=== PATIENT | male | born 1975 | race Caucasian/White ===

== ENCOUNTER 2017-11-02 14:04 | Emergency (ER) | payer SELFPAY ==
[2017-11-02 14:05] VITALS: BP 107/70; PULSE 140; RESP 17; TEMP 36.5; O2SAT 98; BMI 18.8
[2017-11-02 14:57] VITALS: BP 111/87; PULSE 97; RESP 16; O2SAT 100
[2017-11-02] MEDS: 0.9% Normal Saline 1,000 ML 1000 ML IV ×2 (15:14→15:36)
[2017-11-02] MEDS: Ondansetron 4 MG/2 ML Vial IV (15:14)
[2017-11-02 15:24] LABS: ALB/GLOB Ratio 1.2 RATIO (0.9-2.4); AST(SGOT) 11 U/L (15-37); Alanine Aminotransfer ALT/SGPT 22 U/L (16-61); Albumin, Serum 3.9 g/dL (3.2-5.0); Alkaline Phosphatase 63 U/L (45-117); Anion Gap 10 (5-15); BUN 85 mg/dL (7-18); BUN/Creat Ratio 53.1 RATIO (10-20); Calcium,Total 8.9 mg/dL (8.5-10.1); Chloride 100 mmol/L (98-107); EST Glomerular Filtration Rate 51 mL/min (>60); Est Glom Filt Rate - Afr Amer 62 mL/min (>60); Estimated Creatinine Clearance 47.25 ml/min; Globulin 3.2 g/dL (2.2-4.2); Glucose 137 mg/dL (74-106); Protein, Total 7.1 g/dL (6.4-8.2); Sodium Level 133 mmol/L (136-145)
--- NOTE | 2017-11-02 15:38 | ED.VISSUMM ---
- ER Visit Summary Date of Service: 11/02/17 Chief Complaint: flu like symptoms with epic and vomiting diarrhea History of Present Illness: The patient is a 42 M is diagnosed with influenza this past Wednesday and treated with Tamiflu and Zofran. He presents because of persistent vomiting and diarrhea. He states he feels weak and lightheaded with standing. He complains of dry mouth, thirst and palpitations. He states he feels miserable. He has not had a documented fever since Wednesday. He does complain of slight headache. Denies photophobia steps of his neck. He does report mild nasal congestion. His cough is nonproductive. He and his friend states he has had significant vomiting diarrhea. There is been no hematemesis, melena hematochezia. He has had decreased urine output. He is uncertain of the color of his urine. He has no history of liver disease or hepatitis. He has no new tattoos. Physical Examination: Appears ill. He looks older than reported age of 42. He is tachycardic with a heart rate of 140. He appears pale. Conjunctivae is pink. Sclera may be anicteric. Mucosa is dry. Heart is rapid and regular without murmur, gallop or rub. Lungs are clear to auscultation with good manner bilaterally. Abdomen is soft with slightly increased bowel sounds and no guarding or peritoneal findings. Lower extremity exam is unremarkable other than pallor. He does have palpable distal pulses upper and lower extremity and they are symmetric. Patient is alert and oriented ?3. Motor is 5 over 5. Sensory is intact. DTRs are symmetric with no clonus or Babinski sign. Cranial 2 through 12 are intact. Cerebellar testing is normal. Test Results: CMP is remarkable for a BUN of 85 creatinine 1.6. Hepatic profile is unremarkable. Emergency Department Course and Treatment: She reports significant vomiting he was treated with Zofran and 1 L normal saline. He still appears dry and complains of thirst after 1 L. An additional liter of normal saline was obtained. Hepatic profile was obtained because he appears to have jaundice. Treatment Plan: Since patient passed p.o. challenge has urinated and looks and feels better he will be discharged home with prescription for Zofran. Since he has no physician he was assigned to Dr. Jason Nevarez. Dr. Jason Nevarez was paged to assure that he is able to be seen on Wednesday for blood work. Disposition: To home with appropriate home-going instructions and specifically instructions to return Impression: 1. Recent diagnosis of influenza with vomiting diarrhea 2. Prerenal azotemia with acute kidney injury/renal insufficiency 3. Severe dehydration This note was generated with [employer] dictation software. It may contain incorrect words, spelling, and punctuation that were not noted in review of the chart prior to signing ED Disposition - Plan for ED Patient: Disposition: Home or Assisted Living Chief Complaint: Nausea/Vomiting Instructions: ED Diet Vomiting Diarrhea, ED Flu Prescriptions: Ondansetron [Zofran Odt] 8 mg PO Q8H PRN PRN #7 tab PRN Reason: Nausea/Vomiting Referrals: Care Physician,No Primary [Primary Care Provider] - Jason Nevarez MD [STAFF PHYSICIAN] - 11/05/17 Additional Instructions: Jason Nevarez's office tomorrow morning to be seen on Wednesday for repeat blood work. If you continue to have nausea and vomiting that is not controlled by the Zofran and return to the emergency department.
[2017-11-02 17:09] VITALS: TEMP 36.8
[2017-11-02 17:56] VITALS: BP 109/85; PULSE 96; RESP 14; O2SAT 100
== END 2017-11-02 17:57 | disposition home or self-care (01) ==
PROVIDERS: Emergency Provider Emergency Medicine
DX: J11.1 Influenza due to unidentified influenza virus with other respiratory manifestations (principal); R11.10 Vomiting, unspecified; R19.7 Diarrhea, unspecified; R79.89 Other specified abnormal findings of blood chemistry; N17.9 Acute kidney failure, unspecified; N28.9 Disorder of kidney and ureter, unspecified; E86.0 Dehydration; R00.0 Tachycardia, unspecified; Z72.0 Tobacco use
CPT/HCPCS: 80053; 96361; 96365; 96366; 96374; 99285; J7030; J2405

== ENCOUNTER 2017-11-04 15:07 | Emergency (ER) | payer OTHER, SELFPAY ==
[2017-11-02 17:56] VITALS: BP 109/85
[2017-11-04 15:08] VITALS: BP 123/86; PULSE 77; RESP 16; TEMP 36.6; O2SAT 100; BMI 16.9
--- NOTE | 2017-11-04 15:24 | EKG12_ITS ---
Test Reason : Blood Pressure : / mmHG Vent. Rate : 150 BPM Atrial Rate : 150 BPM P-R Int : 130 ms QRS Dur : 066 ms QT Int : 332 ms P-R-T Axes : 082 082 086 degrees QTc Int : 524 ms Sinus tachycardia Right atrial enlargement T wave abnormality, consider inferior ischemia Abnormal ECG Confirmed by ALLEGRA GUIDO, CAS ([id number]), image editor HAILEE MAO ([id number] on 11/05/2017 1:58:03 PM Referred By: IZZY Confirmed By:CAS DINH MD
--- NOTE | 2017-11-04 15:25 | ED.VISSUMM ---
- ER Visit Summary Date of Service: 11/04/17 Chief Complaint: [] Vomiting and diarrhea for over a week History of Present Illness: The patient is a 42 M [] the patient has no past history, resents complaining of debilitating fatigue dizziness with activity and vomiting and diarrhea, about 1 week ago he developed runny nose cough vomiting and diarrhea,, diagnosed with the flu, started on Tamiflu and Zofran, he was seen in the emergency department a few days ago, given IV fluids, his symptoms improved slightly toward he could take soft foods but again vomiting again today, and he came in for evaluation with the mother his diarrhea has been watery he has not been in antibiotics no exposures no food intolerances. He has no past history he is on no chronic meds, other than as needed Excedrin for ocular migraines Physical Examination: [] Times are unremarkable his HEENT exam is really unremarkable his eyes are open normal no jaundice, mucous membranes are moist neck is supple lungs are clear heart tones are normal abdomen soft nontender upper lower extremities unremarkable neurologically is awake moving all 4 she is complaining of generalized fatigue Test Results: [] Emergency Department Course and Treatment: [] The fluids labs etc. Chest x-ray is unremarkable, his hemoglobin returns at 9 his chemistry and UA are unremarkable, I question him again about any history of GI bleeding he now recalls that maybe he has been passing thick blackish red stool for about for 5 days initially he told me the stool was watery and clear. Rectal exam is done and shows melanotic stool, he remains hemodynamically stable I explained to the patient there is no GI coverage at [facility], they are agreeable to transfer to [facility] as the mother lives in that area Spoke with [facility] transfer line the are talking to the hospitalist and will call back Treatment Plan: [] Disposition: [] Transfer to [facility] Impression: [] GI bleed, anemia fatigue recent flu type illness This note was generated with [employer] dictation software. It may contain incorrect words, spelling, and punctuation that were not noted in review of the chart prior to signing ED Disposition - Plan for ED Patient: Chief Complaint: General Illness Referrals: Care Physician,No Primary [Primary Care Provider] -
--- NOTE | 2017-11-04 15:35 | RAD_ITS ---
STUDY: X-RAY CHEST REASON FOR EXAM: Male, 42 years old. Cough. Generalized illness. TECHNIQUE: Single AP portable view of the chest. COMPARISON: None. FINDINGS: EKG electrodes are seen. Hyperinflation. There is no demonstrated pleural abnormality. Normal size heart. Normal mediastinum and connor. There is prominence of the pulmonary hilar arteries without peripheral pulmonary vascular congestion, suggesting pulmonary hypertension. Normal visualized aortic arch and descending thoracic aorta. Normal visualized thoracic spine. Normal visualized ribs, clavicles, and shoulders. There is no demonstrated abnormality of the visualized soft tissue structures of the upper abdomen. RAD/Chest 1 View (Portable) IMPRESSION: Hyperinflation. Electronically Signed: Ritesh Muñoz MD at 15:53 EST Tel [phone], Service support ,
[2017-11-04] MEDS: 0.9% Normal Saline 1,000 ML 1000 ML IV (15:38)
[2017-11-04] MEDS: Ondansetron 4 MG/2 ML Vial IV (15:38)
[2017-11-04] MEDS: 0.9% Normal Saline 1,000 ML 999 ML IV (15:38)
[2017-11-04 15:59] LABS: Absolute Neutrophil Count 4.9 X10^3/uL (2.0-7.7); Basophil# 0.04 X10^3/uL; Basophil% 0.5 % (0-1); Eosinophil# 0.06 X10^3/uL; Eosinophils% 0.8 % (0-5); Hematocrit 26.5 % (40-54); Lymphocyte % 29.3 % (19-41); Mean Corpuscular Hgb 30.8 pg (27.0-32.0); Mean Corpuscular Volume 90.8 fL (80-94); Mean Platelet Vol. 10.6 fl (6.2-12.0); Monocyte# 0.54 X10^3/uL; Monocyte% 6.9 % (0-10); Neutrophil # 4.89 X10^3/uL (2.7-7.7); Neutrophil % 62.4 % (47-70); Platelet Count 201 K/mm3 (150-450); RBC Distribution Width CV 12.2 % (11.6-14.6); RBC Distribution Width SD 40.7 fl (35.1-43.9); Red Blood Count 2.92 M/mm3 (4.6-6.2); White Blood Count 7.8 K/mm3 (4.4-11.0)
[2017-11-04 16:00] LABS: POSITIVE COUNT NO; POSITIVE DIFFERENTIAL NO; POSITIVE MORPHOLOGY NO
[2017-11-04 16:19] LABS: Bacteria 0 SEEN /hpf (None Seen); Mucous, Urine 0 SEEN /hpf (<or=2+); Red Blood Cells-Urine 0 SEEN /hpf (0-5); Squamous Epithelial Cells - UA 0 SEEN /hpf (0-5); White Blood Cells 0 SEEN /hpf (0-5)
[2017-11-04 16:19] LABS: AST(SGOT) 23 U/L (15-37); Alanine Aminotransfer ALT/SGPT 22 U/L (16-61); Albumin, Serum 3.3 g/dL (3.2-5.0); Alkaline Phosphatase 55 U/L (45-117); Anion Gap 8 (5-15); BUN 12 mg/dL (7-18); BUN/Creat Ratio 14.1 RATIO (10-20); Bilirubin, Direct 0.19 mg/dL (0.00-0.30); Calcium,Total 8.4 mg/dL (8.5-10.1); Chloride 106 mmol/L (98-107); Creatinine, Serum 0.85 mg/dL (0.70-1.30); EST Glomerular Filtration Rate 106 mL/min (>60); Est Glom Filt Rate - Afr Amer 128 mL/min (>60); Estimated Creatinine Clearance 87.58 ml/min; Glucose 86 mg/dL (74-106); Lipase 216 U/L (73-393); Potassium 3.9 mmol/L (3.5-5.1); Protein, Total 6.3 g/dL (6.4-8.2); Sodium Level 141 mmol/L (136-145)
[2017-11-04 16:29] VITALS: BP 124/61; PULSE 81; RESP 17; O2SAT 99
[2017-11-04 16:32] LABS: Color, Urine Yellow (Yellow); Glucose, Dipstick Normal (Normal); Ketone-Dipstick Negative (Negative); Leukocyte Esterase-Dipstick Negative /ul (Negative); Nitrite-Dipstick Negative (Negative); Occult Blood-Urine Negative /ul (Negative); Protein-Dipstick Negative (Negative); Urine Bilirubin Dipstick Negative (Negative); Urine Clarity Clear (Clear); Urine Urobilinogen Normal (Normal)
[2017-11-04 17:48] VITALS: BP 103/71; PULSE 88; RESP 12; O2SAT 97
[2017-11-04 18:33] VITALS: BP 103/71; PULSE 98; RESP 20; O2SAT 97
[2017-11-04 19:25] VITALS: BP 104/62; PULSE 76; RESP 16; O2SAT 97
== END 2017-11-04 19:26 | disposition short-term general hospital (02) ==
PROVIDERS: Emergency Provider Emergency Medicine
DX: K92.1 Melena (principal); D64.9 Anemia, unspecified; R53.83 Other fatigue; R19.7 Diarrhea, unspecified; R11.10 Vomiting, unspecified; R05 Cough
CPT/HCPCS: 71045; 80048; 80076; 81001; 83690; 85025; 93005; 96361; 96374; 99284; J7030; A4216; J2405

== ENCOUNTER 2017-12-08 19:06 | Observation (INO) | payer OTHER, SELFPAY ==
[2017-12-08 19:07] VITALS: BP 132/83; PULSE 69; RESP 20; TEMP 36.7; O2SAT 98; BMI 18.8
--- NOTE | 2017-12-08 20:07 | RAD_ITS ---
STUDY: X-RAY CHEST REASON FOR EXAM: Male, 42 years old. Chest pain TECHNIQUE: Frontal and lateral views of the chest. COMPARISON: Chest 2.8.18 FINDINGS: There is hyperinflation of the lungs consistent with chronic obstructive lung disease (COPD). There is no demonstrated pleural abnormality. Normal size heart. Normal mediastinum and connor. Normal visualized pulmonary arteries. Normal visualized aortic arch and descending thoracic aorta. Normal visualized thoracic spine. Normal visualized ribs, clavicles, and shoulders. There is no demonstrated abnormality of the visualized soft tissue structures of the upper abdomen. RAD/Chest PA and Lateral IMPRESSION: COPD Electronically Signed: Jacob Cabral MD at 21:15 EDT , Service support ,
--- NOTE | 2017-12-08 20:07 | EKG12_ITS ---
Test Reason : DIZZINESS Blood Pressure : / mmHG Vent. Rate : 053 BPM Atrial Rate : 053 BPM P-R Int : 150 ms QRS Dur : 086 ms QT Int : 450 ms P-R-T Axes : 052 082 062 degrees QTc Int : 422 ms Sinus bradycardia with sinus arrhythmia Otherwise normal ECG Confirmed by SUKHDEEP NIX ([id number]), senior technical editor HAILEE MAO ([id number] on 12/13/2017 1:53:55 PM Referred By: Wilner Chatman Confirmed By:SUKHDEEP NIX
[2017-12-08 20:21] LABS: Absolute Lymphocyte Count 1.28 X10^3/ul (0.83-4.51); Absolute Neutrophil Count 4.5 X10^3/uL (2.0-7.7); Basophil# 0.02 X10^3/uL; Basophil% 0.3 % (0-1); Eosinophil# 0.03 X10^3/uL; Eosinophils% 0.5 % (0-5); Hematocrit 43.3 % (40-54); Hemoglobin 13.8 g/dl (13.0-16.5); Lymphocyte # 1.28 X10^3/ul (4.0); Lymphocyte % 19.6 % (19-41); Mean Corp Hgb Conc 31.9 g/gl (32-36); Mean Corpuscular Hgb 31.2 pg (27.0-32.0); Mean Platelet Vol. 9.6 fl (6.2-12.0); Monocyte# 0.71 X10^3/uL; Monocyte% 10.9 % (0-10); Neutrophil % 68.7 % (47-70); Platelet Count 231 K/mm3 (150-450); RBC Distribution Width CV 15.7 % (11.6-14.6); RBC Distribution Width SD 56.8 fl (35.1-43.9); Red Blood Count 4.42 M/mm3 (4.6-6.2); White Blood Count 6.5 K/mm3 (4.4-11.0)
[2017-12-08 20:23] LABS: POSITIVE COUNT NO; POSITIVE DIFFERENTIAL NO; POSITIVE MORPHOLOGY NO
[2017-12-08] MEDS: 0.9% Normal Saline 1,000 ML 1000 ML IV (20:31)
[2017-12-08 20:32] VITALS: BP 127/86; BP 130/91; BP 134/91; PULSE 62; PULSE 70; PULSE 73
[2017-12-08 20:35] LABS: Anion Gap 7 (5-15); BUN 8 mg/dL (7-18); BUN/Creat Ratio 10.2 RATIO (10-20); Calcium,Total 8.5 mg/dL (8.5-10.1); Chloride 108 mmol/L (98-107); Creatinine, Serum 0.79 mg/dL (0.70-1.30); EST Glomerular Filtration Rate 116 mL/min (>60); Est Glom Filt Rate - Afr Amer 140 mL/min (>60); Estimated Creatinine Clearance 102.07 ml/min; Glucose 94 mg/dL (74-106); Potassium 4.2 mmol/L (3.5-5.1); Sodium Level 141 mmol/L (136-145)
[2017-12-08] MEDS: Meclizine 12.5 MG Tablet 25 MG PO (22:19)
[2017-12-08] MEDS: diazePAM 5 MG Tablet 2.5 MG PO (22:19)
[2017-12-08 22:21] VITALS: BP 134/93; PULSE 60; RESP 12; O2SAT 98
--- NOTE | 2017-12-08 22:59 | ED.VISSUMM ---
- ER Visit Summary Date of Service: 12/08/17 Chief Complaint: Chest pain dizziness and shortness of breath History of Present Illness: The patient is a 42 M presenting for evaluation secondary chest pain dizziness shortness of breath. Patient states that since yesterday he has had continuous chest pain in his chest and associated feelings of dizziness. Patient describes the dizziness as a spinning type sensation when he changes position. Denies any numbness weakness or visual changes. Patient states that it is also causing him to feel somewhat short of breath. Patient states that he was recently admitted to the hospital approximately a month ago secondary to a GI bleed with anemia, never had a source that was identified but has not had any bleeding recently. Patient denies any history of hypertension diabetes high cholesterol smoking or premature family history of heart disease. Review of systems otherwise negative. Physical Examination: Vital signs are within normal limits, patient is afebrile. General: Patient is well-nourished well-developed and in no acute distress. Head: Normocephalic, atraumatic Eyes: Pupils equal round and reactive bilaterally, extra occular motion intact bialterally, inducible nystagmus with change in visualization of the head ENT: Moist mucous membranes Neck: Supple, no lymphadenopathy, no JVD, no meningismus CVS: Heart regular rate and rhythm, no murmurs, rubs or gallops, radial pulses 2+ bilaterally Resp: Respirations nondistressed, lung sounds clear bilaterally Abdomen: Soft, nontender, nondistended, no palpable masses, normal bowel sounds Back: Nontender Extremities: Nontender, atraumatic, active full range of motion, no peripheral edema Skin: warm, no rashes, no petechia Neuro: Alert and oriented x 4, CN 2-12 intact, no lateralizing neurological defecits normal cerebellar function Psyc: Normal affect Test Results: EKG shows sinus bradycardia with a rate of [address] segments normal T waves. CBC shows normalized hemoglobin at 13.8, chemistry normal, troponin negative. Chest x-ray negative. Emergency Department Course and Treatment: Patient presented with continuous chest pain over the course last 2 days. His cardiac workup was negative his SUE risk score is 0 and his heart score is 0. Patient's dizziness is really seems more consistent with a vertiginous aspect of the patient was treated with meclizine and Valium. He did seem to have some improvement of his dizziness in the emergency department. However throughout the patient's observation he was continuing to complain that he was having some chest discomfort and correlating with this was the patient having runs of bradycardia down into the 30s and 40s. This was confirmed on telemetry monitoring. Potentially the patient's dizziness is associated with symptomatic bradycardia. At this point patient will be admitted for cardiac evaluation. Disposition: Admission Impression: 1. Chest pain 2. Dizziness 3. Symptomatic bradycardia This note was generated with [email or web address] dictation software. It may contain incorrect words, spelling, and punctuation that were not noted in review of the chart prior to signing ED Disposition - Plan for ED Patient: Disposition: Home or Assisted Living Chief Complaint: Dizziness Diagnosis: Vertigo Instructions: ED BPV Vertigo Prescriptions: Meclizine HCl 25 mg PO TID #30 tab Referrals: Kervin Santana MD [Primary Care Provider] - Keep Constance appointment
--- NOTE | 2017-12-08 23:53 | ED.RN ---
HEART RATE NOTED TO INTERMITTENTLY DROP TO LOW 50'S, EKG WITH NO ACUTE FINDINGS, PT REMAINS ASYMPTOMATIC, AMBULATES WELL. MD AWARE.
[2017-12-09] VITALS (15 sets, daily range): BP systolic 109–147; BP diastolic 68–90; PULSE 42–74; RESP 16–22; TEMP 36.1–36.8; O2SAT 97–100; BMI 17.4; BMI 17.5
--- NOTE | 2017-12-09 00:08 | ED.RN ---
HEART RATE NOTED TO DROP TO 42, PT NOW FEELS LIKE HEART IS POUNDING HARD THEN STOPPING FOR A MINUTE. PT STATES HE HAS NOTE FELT THESE SENSATIONS BEFORE. AWARE, PT TO BE ADMITTED.
--- NOTE | 2017-12-09 00:22 | PCM.HP.STD ---
Problem List (1) Iron deficiency anemia Status: Chronic Qualifiers: Iron deficiency anemia type: unspecified iron deficiency Qualified Code(s): D50.9 - Iron deficiency anemia, unspecified (2) GI bleed Status: Chronic Qualifiers: GI bleed type/associated pathology: unspecified gastrointestinal hemorrhage type Qualified Code(s): K92.2 - Gastrointestinal hemorrhage, unspecified (3) Hearing impairment Status: Chronic Qualifiers: Hearing loss type: unspecified Laterality: unspecified laterality Qualified Code(s): H91.90 - Unspecified hearing loss, unspecified ear (4) History of tobacco use Status: Chronic (5) History of marijuana use Status: Chronic (6) Chest pain Status: Acute Qualifiers: Chest pain type: unspecified Qualified Code(s): R07.9 - Chest pain, unspecified (7) Near syncope Status: Acute (8) Vertigo Status: Acute History of Present Illness Date of Admission: 12/09/17 Chief Complaint: CP, Vertigo, LH, Palpitations, Near Syncope The patient is a 42 y/o M w/ PMHx: Chronic Fe Deficiency, Prior Tobacco use, History of Cannabis Usage, Hearing Impairment, Prior History of Panic Attacks, Recent GI bleed treated at [facility] ~ 1 month prior w/ unremarkable EGD and c-scope per his report who presents to the [facility] ED on 12/09/17 with history of ongoing atypical chest discomfort, central, non-radiating with associated palpitations with associated dizziness including lightheadedness and room spinning sensation with near syncope at work with onset of lightheadedness/dizziness over the last 24 hours. In the ED work-up included AF, HR 60s-->30s, unremarkable orthostatic VS, BP 132/83, RR 20, 98% on RA, CBC w/ WBC 6.5, Hgb 13.8, Plts 231 without marked shift, increased mono, unremarkable BMP, trop normal x 1, CXR with chronic changes, EKG initial NSR, noted on telemetry sudden bradycardia rate 30s, noted to be symptomatic, repeat EKG with sinus bradycardia, not evidence block. In the ED patient administered NS, meclizine, valium. Past Medical History Past Medical History (Chronic Problems): Chronic Problems Iron deficiency anemia (Chronic) GI bleed (Chronic) Hearing impairment (Chronic) History of tobacco use (Chronic) History of marijuana use (Chronic) Allergies amoxicillin [Amoxicillin] Adverse Reaction (Verified 12/08/17 19:08) Nausea citalopram hydrobromide [From Celexa] Adverse Reaction (Verified 12/08/17 19:08) Nausea Home Medications: Ambulatory Orders Medication Instructions Recorded Ferrous Sulfate [Ferrous Sulfate] 325 mg PO DAILY 12/08/17 Meclizine HCl 25 mg PO TID #30 tab 12/08/17 Surgical History: - - R hand surgery s/p trauma, R inguinal hernia repair, Umbilical hernia repair. Psychiatric History: Anxiety - History of panic attacks prior. Lives: With Family Smoking Status: Former smoker - Quit 1.5 months prior, ~ 1/2 ppd hx. 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 Drugs: Marijuana - Notes no recent usage. - *Family History Maternal History Items: No pertinent history Paternal History Items: Cancer - Throat CA, currently being treated. Review of Systems Constitutional: Reports: Malaise, Weakness, Fatigue. Denies: Chills, Fever, Weight Change HEENT: Denies: Head Aches, Sinus Congestion, Sinus Drainage Cardiovascular: Reports: Chest Pain, Light Headedness, Syncope - Near syncope sensation.. Denies: Palpitations Respiratory: Reports: Shortness of Breath, Shortness of breath at rest, Shortness of breath upon exertion. Denies: Cough, Sputum production Gastrointestinal: Reports: Nausea. Denies: Abdominal Pain, Vomiting Genitourinary: Denies: Dysuria Musculoskeletal: Denies: Joint Pain, Joint Tenderness Skin: Denies: Rash, Wounds Neurological: Reports: - - Vertigo sensation.. Denies: Focal weakness, Numbness, Tingling Psychiatric: Reports: Anxiety. Denies: Depression, Homicidal Ideations, Suicidal Ideations Hematologic/ Lymphatic: Reports: Anemia. Denies: Easy Bruising, Easy Bleeding VTE Information - Inpt Only VTE Present on Admission: No VTE Mechan Device Prophylaxis: SCD's VTE Pharm Prophylaxis ordered?: No Patient Problems: Active and Suspected Problems Vertigo (Acute) Chest pain (Acute) Near syncope (Acute) Subjective: Seated upright in the ED bed, notes feeling improved since initial presentation, vertigo notably improved. Objective: Physical Examination: General: awake, alert, oriented x 3 and cooperative, seated upright in the ED bed in no apparent distress. Skin: normal color, turgor, no icterus, cyanosis. HEENT: AT/NC, EOMI, PERRLA, moderately dry MM, no carotid bruits or JVD noted, hearing impaired. Lungs: Diminished BS BL, > bases, mild decreased effort, no rales, ronchi or wheezing. Heart: Regular rate and rhythm currently, prior was noted to be bradycardic; no gallop, rub audible, reproducible central chest discomfort w/ chest wall palpation. Abdomen: soft, thin habitus, NTTP, ND, normal BS, no HSM. Extremities: no cyanosis, clubbing, or edema. Neurological: patient awake, alert, oriented x 3; cognitive function intact; pupils equally reactive to light and accomodation; cranial nerves II-XII grossly normal, moving all 4 extremities, no focal deficits, sensation intact, denies any current vertigo, notes markedly improved, strength moderately globally decreased secondary to acute presentation. Psychiatric: affect appears normal, no acute evidence of depressive or anxiety feelings. - Physical Exam Vital Signs Temp Pulse Resp BP Pulse Ox 98.0 F 42 L 12 134/93 H 98 12/08/17 19:07 12/09/17 00:00 12/08/17 22:21 12/08/17 22:21 12/08/17 22:21 Oxygen Delivery Method Room Air Weight: 128 lb Body Mass Index (BMI) 18.8 Laboratory Tests Past 24 Hrs 12/08/17 12/08/17 20:10 20:10 WBC 6.5 RBC 4.42 L Hgb 13.8 Hct 43.3 MCV 98.0 H MCH 31.2 MCHC 31.9 L RDW 15.7 H RDW Differential 56.8 H Plt Count 231 MPV 9.6 Immature Gran % (Auto) 0.000 Neut % (Auto) 68.7 Lymph % (Auto) 19.6 [place] % (Auto) 10.9 H Eos % (Auto) 0.5 Baso % (Auto) 0.3 Absolute Neuts (auto) 4.5 Absolute Lymphs (auto) 1.28 Total Counted Not Reportable Sodium 141 Potassium 4.2 Chloride 108 H Carbon Dioxide 26.0 Anion Gap 7 BUN 8 Creatinine 0.79 Estim Creat Clear Calc 102.07 Est GFR (MDRD) Af Amer 140 Est GFR (MDRD) Non-Af 116 BUN/Creatinine Ratio 10.2 Glucose 94 Calcium 8.5 Troponin I < 0.02 Assessment/Plan Active and Suspected Problems Vertigo (Acute) Chest pain (Acute) Near syncope (Acute) The patient is a 42 y/o M w/ PMHx: Chronic Fe Deficiency, Prior Tobacco use, History of Cannabis Usage, Hearing Impairment, Prior History of Panic Attacks, Recent GI bleed treated at [facility] ~ 1 month prior w/ unremarkable EGD and c-scope per his report who presents to the [facility] ED on 12/09/17 with history of ongoing atypical chest discomfort, central, non-radiating with associated palpitations with associated dizziness including lightheadedness and room spinning sensation with near syncope at work with onset of lightheadedness/dizziness over the last 24 hours. (1) Near Syncopal Event with associated Palpitations, Chest Pain, Lightheadedness, ? Vertigo Sxs w/ Bradycardia: Unclear etiololgy, EKG in ED w/ sinus rhythm without evidence of acute ischemia but on telemetry symptomatic bradycardia noted, CXR w/ no acute cardiopulmonary findings, initial trop normal. Will admit to PCU, place on a monitored bed to assure no acute myocardial infarction and to further monitor bradycardia with serial cardiac enzymes and EKGs. Will maintain on fall precautions, ED orthostatic VS unremarkable, maintain on IVFs, improved some with meclizine, will continue given atypical presentation w/ scheduled meclizine only, PRN zofran/phenergan. Will obtain ECHO. Requested ED to obtain UDS. TSH, Mag pending. (2) Recent GI Bleed w/ Fe Deficiency Anemia: Maintain on Fe supplementation and PPI, notes recent normal bowel movements on day of presentation, noted unremarkable EGD/c-scope at [facility], repeat CBC in AM. (3) History of Tobacco Use: Recent cessation over the last 1.5 months, encouraged continued tobacco cessation, RT education. (4) DVT Prophylaxis: SCDs, defer chemoprophylaxis given recent GI bleed history and unclear source. Code Visit OBSV E&M: 17502 Initial observation care L3
--- NOTE | 2017-12-09 00:35 | HP.PCM_ITS ---
Problem List (1) Iron deficiency anemia Status: Chronic Qualifiers: Iron deficiency anemia type: unspecified iron deficiency Qualified Code(s) : D50.9 - Iron deficiency anemia, unspecified (2) GI bleed Status: Chronic Qualifiers: GI bleed type/associated pathology: unspecified gastrointestinal hemorrhage type Qualified Code(s): K92.2 - Gastrointestinal hemorrhage, unspecified (3) Hearing impairment Status: Chronic Qualifiers: Hearing loss type: unspecified Laterality: unspecified laterality Qualified Code(s): H91.90 - Unspecified hearing loss, unspecified ear (4) History of tobacco use Status: Chronic (5) History of marijuana use Status: Chronic (6) Chest pain Status: Acute Qualifiers: Chest pain type: unspecified Qualified Code(s): R07.9 - Chest pain, unspecified (7) Near syncope Status: Acute (8) Vertigo Status: Acute History of Present Illness Date of Admission: 12/09/17 Chief Complaint: CP, Vertigo, LH, Palpitations, Near Syncope The patient is a 42 y/o M w/ PMHx: Chronic Fe Deficiency, Prior Tobacco use, History of Cannabis Usage, Hearing Impairment, Prior History of Panic Attacks, Recent GI bleed treated at [facility] ~ 1 month prior w/ unremarkable EGD and c-scope per his report who presents to the [facility] ED on 12/09/17 with history of ongoing atypical chest discomfort, central, non-radiating with associated palpitations with associated dizziness including lightheadedness and room spinning sensation with near syncope at work with onset of lightheadedness/dizziness over the last 24 hours. In the ED work-up included AF, HR 60s-->30s, unremarkable orthostatic VS, BP 132/83, RR 20, 98% on RA, CBC w/ WBC 6.5, Hgb 13.8, Plts 231 without marked shift, increased mono, unremarkable BMP, trop normal x 1, CXR with chronic changes, EKG initial NSR, noted on telemetry sudden bradycardia rate 30s , noted to be symptomatic, repeat EKG with sinus bradycardia, not evidence block. In the ED patient administered NS, meclizine, valium. Past Medical History Past Medical History (Chronic Problems): Chronic Problems Iron deficiency anemia (Chronic) GI bleed (Chronic) Hearing impairment (Chronic) History of tobacco use (Chronic) History of marijuana use (Chronic) Allergies amoxicillin [Amoxicillin] Adverse Reaction (Verified 12/08/17 19:08) Nausea citalopram hydrobromide [From Celexa] Adverse Reaction (Verified 12/08/17 19:08) Nausea Home Medications: Ambulatory Orders Medication Instructions Recorded Ferrous Sulfate [Ferrous Sulfate] 325 mg PO DAILY 12/08/17 Meclizine HCl 25 mg PO TID #30 tab 12/08/17 Surgical History: - - R hand surgery s/p trauma, R inguinal hernia repair, Umbilical hernia repair. Psychiatric History: Anxiety - History of panic attacks prior. Lives: With Family Smoking Status: Former smoker - Quit 1.5 months prior, ~ 1/2 ppd hx. 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 Drugs: Marijuana - Notes no recent usage. - *Family History Maternal History Items: No pertinent history Paternal History Items: Cancer - Throat CA, currently being treated. Review of Systems Constitutional: Reports: Malaise, Weakness, Fatigue. Denies: Chills, Fever, Weight Change HEENT: Denies: Head Aches, Sinus Congestion, Sinus Drainage Cardiovascular: Reports: Chest Pain, Light Headedness, Syncope - Near syncope sensation.. Denies: Palpitations Respiratory: Reports: Shortness of Breath, Shortness of breath at rest, Shortness of breath upon exertion. Denies: Cough, Sputum production Gastrointestinal: Reports: Nausea. Denies: Abdominal Pain, Vomiting Genitourinary: Denies: Dysuria Musculoskeletal: Denies: Joint Pain, Joint Tenderness Skin: Denies: Rash, Wounds Neurological: Reports: - - Vertigo sensation.. Denies: Focal weakness, Numbness , Tingling Psychiatric: Reports: Anxiety. Denies: Depression, Homicidal Ideations, Suicidal Ideations Hematologic/ Lymphatic: Reports: Anemia. Denies: Easy Bruising, Easy Bleeding VTE Information - Inpt Only VTE Present on Admission: No VTE Mechan Device Prophylaxis: SCD's VTE Pharm Prophylaxis ordered?: No Patient Problems: Active and Suspected Problems Vertigo (Acute) Chest pain (Acute) Near syncope (Acute) Subjective: Seated upright in the ED bed, notes feeling improved since initial presentation , vertigo notably improved. Objective: Physical Examination: General: awake, alert, oriented x 3 and cooperative, seated upright in the ED bed in no apparent distress. Skin: normal color, turgor, no icterus, cyanosis. HEENT: AT/NC, EOMI, PERRLA, moderately dry MM, no carotid bruits or JVD noted, hearing impaired. Lungs: Diminished BS BL, > bases, mild decreased effort, no rales, ronchi or wheezing. Heart: Regular rate and rhythm currently, prior was noted to be bradycardic; no gallop, rub audible, reproducible central chest discomfort w/ chest wall palpation. Abdomen: soft, thin habitus, NTTP, ND, normal BS, no HSM. Extremities: no cyanosis, clubbing, or edema. Neurological: patient awake, alert, oriented x 3; cognitive function intact; pupils equally reactive to light and accomodation; cranial nerves II-XII grossly normal, moving all 4 extremities, no focal deficits, sensation intact, denies any current vertigo, notes markedly improved, strength moderately globally decreased secondary to acute presentation. Psychiatric: affect appears normal, no acute evidence of depressive or anxiety feelings. - Physical Exam Vital Signs Temp Pulse Resp BP Pulse Ox 98.0 F 42 L 12 134/93 H 98 12/08/17 19:07 12/09/17 00:00 12/08/17 22:21 12/08/17 22:21 12/08/17 22:21 Oxygen Delivery Method Room Air Weight: 128 lb Body Mass Index (BMI) 18.8 Laboratory Tests Past 24 Hrs 12/08/17 12/08/17 20:10 20:10 WBC 6.5 RBC 4.42 L Hgb 13.8 Hct 43.3 MCV 98.0 H MCH 31.2 MCHC 31.9 L RDW 15.7 H RDW Differential 56.8 H Plt Count 231 MPV 9.6 Immature Gran % (Auto) 0.000 Neut % (Auto) 68.7 Lymph % (Auto) 19.6 Hettinger % (Auto) 10.9 H Eos % (Auto) 0.5 Baso % (Auto) 0.3 Absolute Neuts (auto) 4.5 Absolute Lymphs (auto) 1.28 Total Counted Not Reportable Sodium 141 Potassium 4.2 Chloride 108 H Carbon Dioxide 26.0 Anion Gap 7 BUN 8 Creatinine 0.79 Estim Creat Clear Calc 102.07 Est GFR (MDRD) Af Amer 140 Est GFR (MDRD) Non-Af 116 BUN/Creatinine Ratio 10.2 Glucose 94 Calcium 8.5 Troponin I < 0.02 Assessment/Plan Active and Suspected Problems Vertigo (Acute) Chest pain (Acute) Near syncope (Acute) The patient is a 42 y/o M w/ PMHx: Chronic Fe Deficiency, Prior Tobacco use, History of Cannabis Usage, Hearing Impairment, Prior History of Panic Attacks, Recent GI bleed treated at [facility] ~ 1 month prior w/ unremarkable EGD and c-scope per his report who presents to the [facility] ED on 12/09/17 with history of ongoing atypical chest discomfort, central, non-radiating with associated palpitations with associated dizziness including lightheadedness and room spinning sensation with near syncope at work with onset of lightheadedness/dizziness over the last 24 hours. (1) Near Syncopal Event with associated Palpitations, Chest Pain, Lightheadedness, ? Vertigo Sxs w/ Bradycardia: Unclear etiololgy, EKG in ED w/ sinus rhythm without evidence of acute ischemia but on telemetry symptomatic bradycardia noted, CXR w/ no acute cardiopulmonary findings, initial trop normal. Will admit to PCU, place on a monitored bed to assure no acute myocardial infarction and to further monitor bradycardia with serial cardiac enzymes and EKGs. Will maintain on fall precautions, ED orthostatic VS unremarkable, maintain on IVFs, improved some with meclizine, will continue given atypical presentation w/ scheduled meclizine only, PRN zofran/phenergan. Will obtain ECHO. Requested ED to obtain UDS. TSH, Mag pending. (2) Recent GI Bleed w/ Fe Deficiency Anemia: Maintain on Fe supplementation and PPI, notes recent normal bowel movements on day of presentation, noted unremarkable EGD/c-scope at [facility], repeat CBC in AM. (3) History of Tobacco Use: Recent cessation over the last 1.5 months, encouraged continued tobacco cessation, RT education. (4) DVT Prophylaxis: SCDs, defer chemoprophylaxis given recent GI bleed history and unclear source. Code Visit OBSV E&M: 37186 Initial observation care L3
[2017-12-09 01:58] LABS: Magnesium 2.2 mg/dL (1.6-2.6); Thyroid Stim Hormone (TSH) 0.75 uIU/mL (0.358-3.74)
[2017-12-09] MEDS: Pantoprazole Sodium 40 MG Tablet PO ×3 (02:00→21:54)
[2017-12-09] MEDS: 0.9% Normal Saline 1,000 ML 150 ML IV ×3 (02:00→21:54)
[2017-12-09] MEDS: Meclizine HCl 25 MG Tablet PO ×4 (05:07→23:21)
--- NOTE | 2017-12-09 05:55 | ECHOD_ITS ---
Reason For Study: Arrhythmia Procedure This was a 2D Doppler, Color Flow transthoracic echocardiogram. Exam performed portable in patient room. Left Ventricle Normal size and thickness. The estimated ejection fraction is 65 %. Normal diastology for age. No regional wall motion abnormalities noted. Right Ventricle Normal size and thickness. Normal systolic function. Atria Normal left atrium. Normal right atrium. Normal atrial septum. Mitral Valve The mitral valve is structurally normal. No prolapse or stenosis seen. Trivial mitral valve insufficiency. Tricuspid Valve Normal tricuspid valve. Trivial tricuspid valve insufficiency. Right ventricular systolic pressure estimated to be 23 mmHg. Aortic Valve Normal aortic valve. Trisinus/trileaflet aortic valve. Pulmonic Valve Normal pulmonic valve. Great Vessels Normal aortic root. Normal arch. Normal inferior vena cava. Inferior vena cava collapse with sniff. Pericardium/Pleural No pericardial effusion. MMode/2D Measurements & Calculations LVIDd: 4.9 cm IVSd: 0.89 cm Ao root diam: 2.7 cm LVIDs: 3.2 cm LVPWd: 0.89 cm LA dimension: 2.5 cm RVDd: 3.9 cm FS: 34.9 % LAV(MOD-bp): 20.8 ml LA A4 area: 12.1 cm2 RA A4 area: 9.7 cm2 LAV(MOD-bp) Indexed: 12.6 ml/m2 LAV(MOD-sp2): 13.4 ml LAV(MOD-sp4): 26.0 ml Doppler Measurements & Calculations MV E max chao: 78.2 cm/sec Lat Peak E' Chao: 12.5 cm/sec Med Peak E' Chao: 10.7 cm/sec MV A max chao: 57.8 cm/sec E/E' lat: 6.3 E/E' med: 7.3 MV E/A: 1.4 Ao V2 max: 100.7 cm/sec LV V1 max: 92.0 cm/sec PA V2 max: 65.3 cm/sec Ao max P.1 mmHg LV V1 max P.4 mmHg Ao V2 mean: 69.9 cm/sec Ao mean P.1 mmHg Ao V2 VTI: 20.6 cm TR max chao: 210.2 cm/sec TR max P.7 mmHg Interpretation Summary The estimated ejection fraction is 65 %. Normal diastology for age. Trivial mitral valve insufficiency. Trivial tricuspid valve insufficiency. Right ventricular systolic pressure estimated to be 23 mmHg. Compared to echo report dated 10/31/2012, no appreciable changes noted. Ordering Physician: Lin Mcnamara Referring Physician: MD Esther Kervin Performed By: Hawa Rosario RDCS, RVT
--- NOTE | 2017-12-09 05:55 | EKG12_ITS ---
Test Reason : AM Blood Pressure : / mmHG Vent. Rate : 057 BPM Atrial Rate : 057 BPM P-R Int : 158 ms QRS Dur : 086 ms QT Int : 454 ms P-R-T Axes : 043 086 066 degrees QTc Int : 441 ms Sinus bradycardia Otherwise normal ECG When compared with ECG of 08-DEC-2017 20:14, MANUAL COMPARISON REQUIRED, DATA IS UNCONFIRMED Confirmed by SUKHDEEP NIX ([id number]), sports editor HAILEE MAO ([id number]) on 12/13/2017 2:45:49 PM Referred By: Wilner Chatman Confirmed By:SUKHDEEP NIX
[2017-12-09 06:14] LABS: Hematocrit 40.2 % (40-54); Mean Corp Hgb Conc 32.3 g/gl (32-36); Mean Corpuscular Hgb 31.8 pg (27.0-32.0); Mean Corpuscular Volume 98.3 fL (80-94); Mean Platelet Vol. 10.2 fl (6.2-12.0); Platelet Count 241 K/mm3 (150-450); RBC Distribution Width CV 15.6 % (11.6-14.6); RBC Distribution Width SD 55.2 fl (35.1-43.9); Red Blood Count 4.09 M/mm3 (4.6-6.2); White Blood Count 5.5 K/mm3 (4.4-11.0)
[2017-12-09 06:18] LABS: Anion Gap 6 (5-15); BUN 9 mg/dL (7-18); BUN/Creat Ratio 11.9 RATIO (10-20); Calcium,Total 7.5 mg/dL (8.5-10.1); Chloride 110 mmol/L (98-107); Creatinine, Serum 0.76 mg/dL (0.70-1.30); EST Glomerular Filtration Rate 121 mL/min (>60); Est Glom Filt Rate - Afr Amer 147 mL/min (>60); Estimated Creatinine Clearance 98.14 ml/min; Glucose 100 mg/dL (74-106); Potassium 3.4 mmol/L (3.5-5.1); Sodium Level 144 mmol/L (136-145)
[2017-12-09 06:22] LABS: Scan Indicated on CBC? Y/N NO
[2017-12-09 10:29] LABS: Amphetamine Urine VISTA NEGATIVE (<1000 ng/mL); Barbiturate Urine VISTA NEGATIVE (< 200 ng/mL); Benzodiazepine Urine VISTA POSITIVE (< 200 ng/mL); Cocaine Urine VISTA NEGATIVE (< 300 ng/mL); Ecstacy Urine VISTA NEGATIVE (< 500 ng/mL); Methadone Urine VISTA NEGATIVE (< 300 ng/mL); PCP Urine VISTA NEGATIVE (< 25 ng/mL); THC Urine VISTA NEGATIVE (< 50 ng/mL); Vista UDS pH Range 6
[2017-12-09] MEDS: Ferrous Sulfate 325 MG Tablet PO (10:47)
--- NOTE | 2017-12-09 12:10 | MRI_ITS ---
STUDY: MRI BRAIN WITH AND WITHOUT CONTRAST REASON FOR EXAM: Male, 42 years old. Severe vertigo TECHNIQUE: Standardized multiplanar fat and water weighted pulse sequences were obtained. 5ml ml of Gadavist contrast material was administered intravenously for the contrast portion of the examination. COMPARISON: None. FINDINGS: Normal size of the ventricles and extra-axial spaces for the patient's age. Normal white matter tracts of the supratentorial brain. Normal bilateral basal ganglia. Normal thalami. There is no extra-axial fluid accumulation. Normal flow voids within the major intracranial circulation suggesting patency by spin echo criteria. Normal venous enhancement. There is no enhancing intra-axial or extra-axial abnormality. Normal sella turcica, pituitary gland, infundibular stalk, optic chiasm and hypothalamus. Normal tectal plate and pineal gland. Normal midbrain, hao and medulla. Normal cerebellum. Normal basal cisterns. Normal bilateral temporal bones. Normal bilateral internal auditory canals. No demonstrated orbital abnormality, within the constraints of a routine brain study. Mild bilateral maxillary and ethmoid sinus disease. Normal calvarium and skull base. Normal visualized soft tissue structures. Normal visualized upper cervical spine. MRI/Brain W/WO Contrast IMPRESSION: Normal unenhanced and enhanced MRI of the brain. Minor bilateral maxillary and ethmoid sinus disease Electronically Signed: Piotr Kaplan MD at 17:22 EDT , Service support ,
--- NOTE | 2017-12-09 15:12 | PCM.PROGNOTE ---
<Betsey Callahan - Last Filed: 12/09/17 15:22> Patient Problems: Active and Suspected Problems Vertigo (Acute) Chest pain (Acute) Near syncope (Acute) Subjective: Patient seen and examined. Denies chest pain, shortness of breath. Complains of dizziness which is not aggravated or relieved by any factors. He states he has had these symptoms in the past but were not this bad. She denies focal weakness. Denies numbness, tingling. Denies vision changes. - Physical Exam General: Alert, Oriented x3, Cooperative, No apparent distress HEENT: Atraumatic, PERRLA, EOMI, Normocephalic Neck: Supple, No JVD, Negative Carotid Bruits Lungs: Clear to auscultation, Normal air movement Cardiovascular: Regular rate, Regular Rhythm, Normal S1, Normal S2, No murmurs Abdomen: Bowel Sounds Present, Soft, Non Tender, Non-Distended Extremities: No clubbing, No cyanosis, No edema, Capillary Refill Less than 3 Seconds Skin: No rashes, No breakdown Musculoskeletal: No Tenderness to Palpation of Joints or Extremities Neurological: Cranial nerves II-XII grossly intact, Neuro grossly intact Psych/Mental Status: Normal Affect, Appropriate Vital Signs Temp Pulse Resp BP Pulse Ox 97.1 F L 66 16 109/75 99 12/09/17 10:48 12/09/17 11:03 12/09/17 10:48 12/09/17 10:48 12/09/17 10:48 Oxygen Delivery Method Room Air Weight: 53.7 kg Body Mass Index (BMI) 17.4 Intake and Output for Last 24 Hours 12/07/17 12/08/17 12/09/17 23:59 23:59 23:59 Intake Total 2086 / 2086 Output Total 700 / 700 Balance 1386 / 1386 Laboratory Tests Past 24 Hrs 12/09/17 12/09/17 12/09/17 01:43 05:17 05:17 WBC 5.5 RBC 4.09 L Hgb 13.0 Hct 40.2 MCV 98.3 H MCH 31.8 MCHC 32.3 RDW 15.6 H RDW Differential 55.2 H Plt Count 241 MPV 10.2 Sodium 144 Potassium 3.4 L Chloride 110 H Carbon Dioxide 28.0 Anion Gap 6 BUN 9 Creatinine 0.76 Estim Creat Clear Calc 98.14 Est GFR (MDRD) Af Amer 147 Est GFR (MDRD) Non-Af 121 BUN/Creatinine Ratio 11.9 Glucose 100 Calcium 7.5 L Troponin I < 0.02 < 0.02 Urine Opiates Screen Urine Methadone Screen Ur Barbiturates Screen Ur Phencyclidine Scrn Ur Amphetamines Screen U Methamphetamin-MDMA U Benzodiazepines Scrn Urine Cocaine Screen U Cannabinoids Screen Ur Drug Screen Comment 12/09/17 12/09/17 09:15 11:10 WBC RBC Hgb Hct MCV MCH MCHC RDW RDW Differential Plt Count MPV Sodium Potassium Chloride Carbon Dioxide Anion Gap BUN Creatinine Estim Creat Clear Calc Est GFR (MDRD) Af Amer Est GFR (MDRD) Non-Af BUN/Creatinine Ratio Glucose Calcium Troponin I < 0.02 Urine Opiates Screen NEGATIVE Urine Methadone Screen NEGATIVE Ur Barbiturates Screen NEGATIVE Ur Phencyclidine Scrn NEGATIVE Ur Amphetamines Screen NEGATIVE U Methamphetamin-MDMA NEGATIVE U Benzodiazepines Scrn POSITIVE H Urine Cocaine Screen NEGATIVE U Cannabinoids Screen NEGATIVE Ur Drug Screen Comment Assessment/Plan Active and Suspected Problems Vertigo (Acute) Chest pain (Acute) Near syncope (Acute) Patient is a 42-year-old male admitted 12/09/2017 due to chest pain, vertigo, palpitations, near syncope. Patient has a past medical history of chronic iron deficiency anemia, history of tobacco use, history of cannabis use, hearing impairment, history of panic attacks, recent GI bleed treated at [facility] approximately 1 month ago. 1. Acute vertigo/near syncope-patient describes sensation of room spinning. He states he has had vertigo in the past but not this bad. He states he feels unstable walking due to dizziness. Mild bradycardia on admission and is now sinus rhythm, rate 66. Echocardiogram pending. Monitor telemetry. MRI of brain ordered and pending. Continue meclizine for dizziness. Phenergan for nausea. Urine drug screen positive for benzodiazepines. He did receive Valium in ER. PT/OT. TSH, mag within normal limits. 2. Chest pain-denies further chest pain since admission. Troponin negative ?4. EKG without ST-T changes. 3. Chronic iron deficiency anemia with recent GI bleed-hemoglobin within normal limits. Monitor CBC. Patient denies blood in stool. Continue iron supplementation. 4. History of tobacco use with recent cessation-encouraged continued cessation. DVT prophylaxis-SCDs. This patient was seen by CHARLENE Greenfield under the supervision of Dr. Jones. <Pritesh Jones - Last Filed: 12/09/17 17:28> - Physical Exam Vital Signs Temp Pulse Resp BP Pulse Ox 97.8 F 52 L 16 114/68 98 12/09/17 16:10 12/09/17 16:10 12/09/17 16:10 12/09/17 16:10 12/09/17 16:10 Oxygen Delivery Method Room Air Weight: 53.7 kg Body Mass Index (BMI) 17.4 Intake and Output for Last 24 Hours 12/07/17 12/08/17 12/09/17 23:59 23:59 23:59 Intake Total 2086 / 2086 Output Total 700 / 700 Balance 1386 / 1386 Laboratory Tests Past 24 Hrs 12/09/17 12/09/17 12/09/17 01:43 05:17 05:17 WBC 5.5 RBC 4.09 L Hgb 13.0 Hct 40.2 MCV 98.3 H MCH 31.8 MCHC 32.3 RDW 15.6 H RDW Differential 55.2 H Plt Count 241 MPV 10.2 Sodium 144 Potassium 3.4 L Chloride 110 H Carbon Dioxide 28.0 Anion Gap 6 BUN 9 Creatinine 0.76 Estim Creat Clear Calc 98.14 Est GFR (MDRD) Af Amer 147 Est GFR (MDRD) Non-Af 121 BUN/Creatinine Ratio 11.9 Glucose 100 Calcium 7.5 L Troponin I < 0.02 < 0.02 Urine Opiates Screen Urine Methadone Screen Ur Barbiturates Screen Ur Phencyclidine Scrn Ur Amphetamines Screen U Methamphetamin-MDMA U Benzodiazepines Scrn Urine Cocaine Screen U Cannabinoids Screen Ur Drug Screen Comment 12/09/17 12/09/17 09:15 11:10 WBC RBC Hgb Hct MCV MCH MCHC RDW RDW Differential Plt Count MPV Sodium Potassium Chloride Carbon Dioxide Anion Gap BUN Creatinine Estim Creat Clear Calc Est GFR (MDRD) Af Amer Est GFR (MDRD) Non-Af BUN/Creatinine Ratio Glucose Calcium Troponin I < 0.02 Urine Opiates Screen NEGATIVE Urine Methadone Screen NEGATIVE Ur Barbiturates Screen NEGATIVE Ur Phencyclidine Scrn NEGATIVE Ur Amphetamines Screen NEGATIVE U Methamphetamin-MDMA NEGATIVE U Benzodiazepines Scrn POSITIVE H Urine Cocaine Screen NEGATIVE U Cannabinoids Screen NEGATIVE Ur Drug Screen Comment Assessment/Plan 42-year-old gentleman who presented with episodes of palpitations with near syncope. Patient has been admitted to a monitored bed where he is currently undergoing evaluation Patient has been seen and examined. Documentation by Betsey Callahan FIRMWARE SOFTWARE VERIFICATION ENGINEER reviewed. Also did examine the patient myself recommended addition of MRI to rule out posterior circulation CVA. Patient initial assessment including history and physical reviewed in addition to his management orders and will follow. Code Visit Procedures: Other Procedure - See Report - Nonbillable encounter
[2017-12-10] VITALS (10 sets, daily range): BP systolic 116–129; BP diastolic 65–77; PULSE 36–58; RESP 14–16; TEMP 36.5–36.8; O2SAT 94–99
[2017-12-10] MEDS: 0.9% Normal Saline 1,000 ML 150 ML IV ×2 (03:47→10:39)
[2017-12-10] MEDS: Meclizine HCl 25 MG Tablet PO ×2 (05:21→11:26)
--- NOTE | 2017-12-10 05:55 | EKG12_ITS ---
Test Reason : AM EKG Blood Pressure : / mmHG Vent. Rate : 047 BPM Atrial Rate : 047 BPM P-R Int : 164 ms QRS Dur : 092 ms QT Int : 476 ms P-R-T Axes : 033 079 070 degrees QTc Int : 421 ms Sinus bradycardia with sinus arrhythmia , early repolarization abnormality Otherwise normal ECG When compared with ECG of 09-DEC-2017 04:53, MANUAL COMPARISON REQUIRED, DATA IS UNCONFIRMED Confirmed by SUKHDEEP NIX ([id number]), market editor HAILEE MAO ([id number]) on 12/13/2017 2:51:03 PM Referred By: Wilner Chatman Confirmed By:SUKHDEEP NIX
[2017-12-10 06:59] LABS: Hematocrit 40.5 % (40-54); Mean Corp Hgb Conc 32.1 g/gl (32-36); Mean Corpuscular Hgb 31.6 pg (27.0-32.0); Mean Corpuscular Volume 98.3 fL (80-94); Mean Platelet Vol. 10.1 fl (6.2-12.0); Platelet Count 220 K/mm3 (150-450); RBC Distribution Width SD 53.4 fl (35.1-43.9); Red Blood Count 4.12 M/mm3 (4.6-6.2); White Blood Count 5.9 K/mm3 (4.4-11.0)
[2017-12-10 07:06] LABS: Scan Indicated on CBC? Y/N NO
[2017-12-10 07:17] LABS: Anion Gap 6 (5-15); BUN 7 mg/dL (7-18); BUN/Creat Ratio 11.9 RATIO (10-20); Calcium,Total 7.8 mg/dL (8.5-10.1); Chloride 111 mmol/L (98-107); Creatinine, Serum 0.59 mg/dL (0.70-1.30); EST Glomerular Filtration Rate 162 mL/min (>60); Est Glom Filt Rate - Afr Amer 196 mL/min (>60); Estimated Creatinine Clearance 126.41 ml/min; Glucose 92 mg/dL (74-106); Sodium Level 141 mmol/L (136-145)
[2017-12-10] MEDS: Ferrous Sulfate 325 MG Tablet PO (08:49)
[2017-12-10] MEDS: Pantoprazole Sodium 40 MG Tablet PO (08:49)
--- NOTE | 2017-12-10 14:47 | PCM.DC ---
- Discharge Diagnoses Current Active Problems: Current Active and Chronic Problems Vertigo (Acute) Iron deficiency anemia (Chronic) GI bleed (Chronic) Hearing impairment (Chronic) History of tobacco use (Chronic) History of marijuana use (Chronic) Chest pain (Acute) Near syncope (Acute) You will use the following diet at home:: No restrictions Discharge Activity: Return to Normal Activity Call your doctor if you observe: Numbness or Tingling, Shortness of breath, Dizziness, Fainting spells, Chest pain, Increased palpitations (irregular heartbeat) Instructions: ED BPV Vertigo Allergies/Adverse Reactions: Allergies amoxicillin [Amoxicillin] Adverse Reaction (Verified 12/08/17 19:08) Nausea citalopram hydrobromide [From Celexa] Adverse Reaction (Verified 12/08/17 19:08) Nausea Medications to take at Discharge Ferrous Sulfate 325 mg PO DAILY 12/08/17 Thiamine HCl [Vitamin B-1] 50 mg PO DAILY 12/09/17 Meclizine HCl [Antivert] 25 mg PO Q6H #30 tab 12/10/17 The following prescriptions were given: Meclizine HCl [Antivert] 25 mg PO Q6H #30 tab Orders to be completed after discharge: 30-Day Event [employer] [[facility]] Location: None Selected Primary Care Physician: Kervin Santana MD [Primary Care Provider] - Keep Constance appointment Please follow up with your Primary Care Physician in: 3-5 Days Proposed Discharge Date: 12/10/17
--- NOTE | 2017-12-10 14:49 | PCM.DC.SUM ---
<Betsey Callahan - Last Filed: 12/10/17 14:57> Discharge Date and Diagnosis Date of Admission: 12/09/17 Date of Discharge: 12/10/17 - Primary Discharge Diagnosis Active and Suspected Problems 1. Acute vertigo, near syncope 2. Chest pain- resolved, ACS ruled out. - Secondary Discharge Diagnosis Chronic Problems Iron deficiency anemia (Chronic) GI bleed (Chronic) Hearing impairment (Chronic) History of tobacco use (Chronic) History of marijuana use (Chronic) Hospital Course and Treatment Imaging Results: Diagnostic Data Chest X-Ray 12/08/17 20:07 IMPRESSION: COPD Electronically Signed: Jacob Cabral MD at 21:15 EDT , Service support , Brain MRI 12/09/17 12:10 IMPRESSION: Normal unenhanced and enhanced MRI of the brain. Minor bilateral maxillary and ethmoid sinus disease Electronically Signed: Piotr Kaplan MD at 17:22 EDT , Service support , Operations: None Procedures: 2-D Echocardiogram Summary of Care Provided: Patient is a 42-year-old male admitted 12/09/2017 due to chest pain, vertigo, palpitations, near syncope. Patient has a past medical history of chronic iron deficiency anemia, history of tobacco use, history of cannabis use, hearing impairment, history of panic attacks, recent GI bleed treated at [facility] approximately 1 month ago. 1. Acute vertigo/near syncope/sinus bradycardia-patient describes sensation of room spinning. He states he has had vertigo in the past but not this bad. Patient was noted to have episodes of bradycardia with heart rate in the 30s while sleeping at night. Symptoms of dizziness/vertigo continued while heart rate was within normal limits. Patient sinus bradycardia during the daytime with heart rate in the 50s. Patient will be discharged with 30 day event monitor to be read by Dr. hSay. Echocardiogram showed an estimated ejection fraction of 65%, RVSP estimated to be 23 mmHg. MRI of the brain unremarkable. TSH and electrolytes within normal limits. Patient will be discharged on meclizine and follow-up with primary care physician. 2. Chest pain-denies further chest pain since admission. Troponin negative ?4. EKG without ST-T changes. 3. Chronic iron deficiency anemia with recent GI bleed-hemoglobin within normal limits. Continue iron supplementation. 4. History of tobacco use with recent cessation-encouraged continued cessation. General: Alert, Oriented x3, Cooperative, No apparent distress HEENT: Atraumatic, PERRLA, EOMI, Normocephalic Neck: Supple, No JVD, Negative Carotid Bruits Lungs: Clear to auscultation, Normal air movement Cardiovascular: Bradycardic, Regular Rhythm, Normal S1, Normal S2, No murmurs Abdomen: Bowel Sounds Present, Soft, Non Tender, Non-Distended Extremities: No clubbing, No cyanosis, No edema, Capillary Refill Less than 3 Seconds Skin: No rashes, No breakdown Musculoskeletal: No Tenderness to Palpation of Joints or Extremities Neurological: Cranial nerves II-XII grossly intact, Neuro grossly intact Psych/Mental Status: Normal Affect, Appropriate Patient seen and examined prior to discharge. Physical assessment as noted above. Patient stable for discharge home with recommendations as noted above. This patient was seen by CHARELNE Greenfield under the supervision of Dr. Jones. Discharge Diet: No Restrictions Discharge Activity: Return to Normal Activity Call your doctor if you observe: Numbness or Tingling, Shortness of breath, Dizziness, Fainting spells, Chest pain, Increased palpitations (irregular heartbeat) Home Medications: Medications to take at Discharge Ferrous Sulfate 325 mg PO DAILY 12/08/17 Thiamine HCl [Vitamin B-1] 50 mg PO DAILY 12/09/17 Meclizine HCl [Antivert] 25 mg PO Q6H #30 tab 12/10/17 Following Prescrptions Were Given to Patient: Meclizine HCl [Antivert] 25 mg PO Q6H #30 tab Other Amb Orders: 30-Day Event Recorder [[facility]] Location: None Selected Primary Care Physician: Kervin Santana MD [Primary Care Provider] - Keep Constance appointment Please follow up with your Primary Care Physician in: 3-5 Days Patient Instructions: ED BPV Vertigo Medical Necessity - Tobacco Use Smoking Status: Former smoker Tobacco Use: Non-smoker Meaningful Use Info Meaningful Use Diagnoses (Choose all that apply): None applicable <Pritesh Jones - Last Filed: 12/10/17 15:36> Discharge Date and Diagnosis - Secondary Discharge Diagnosis Chronic Problems Iron deficiency anemia (Chronic) GI bleed (Chronic) Hearing impairment (Chronic) History of tobacco use (Chronic) History of marijuana use (Chronic) Hospital Course and Treatment Summary of Care Provided: 42-year-old gentleman who presented with episodes of palpitations with near syncope. Patient patient was admitted to a monitored bed for subsequent evaluation. 2D echo obtained as part of patient's did not reveal any structural heart disease. Patient was placed on continuous telemetry monitoring and was found to have bradycardia while sleeping the 30s and 50s during the daytime. Patient was therefore discharged home with a Holter monitor Hospital Course as elicited above by Betsey Callahan EXHIBITION CARVER Was seen and examined on the day of his discharge his discharge instructions, med reconciliation as well as follow-up reviewed total time spent on discharge process 35 minutes Code Visit OBSV E&M: 55991 Observation care discharge
--- NOTE | 2017-12-10 14:57 | DS.PCM_ITS ---
<Betsey Callahan - Last Filed: 12/10/17 14:57> Discharge Date and Diagnosis Date of Admission: 12/09/17 Date of Discharge: 12/10/17 - Primary Discharge Diagnosis Active and Suspected Problems 1. Acute vertigo, near syncope 2. Chest pain- resolved, ACS ruled out. - Secondary Discharge Diagnosis Chronic Problems Iron deficiency anemia (Chronic) GI bleed (Chronic) Hearing impairment (Chronic) History of tobacco use (Chronic) History of marijuana use (Chronic) Hospital Course and Treatment Imaging Results: Diagnostic Data Chest X-Ray 12/08/17 20:07 IMPRESSION: COPD Electronically Signed: Jacob Cabral MD at 21:15 EDT , Service support , Brain MRI 12/09/17 12:10 IMPRESSION: Normal unenhanced and enhanced MRI of the brain. Minor bilateral maxillary and ethmoid sinus disease Electronically Signed: Piotr Kaplan MD at 17:22 EDT , Service support , Operations: None Procedures: 2-D Echocardiogram Summary of Care Provided: Patient is a 42-year-old male admitted 12/09/2017 due to chest pain, vertigo, palpitations, near syncope. Patient has a past medical history of chronic iron deficiency anemia, history of tobacco use, history of cannabis use, hearing impairment, history of panic attacks, recent GI bleed treated at [facility] approximately 1 month ago. 1. Acute vertigo/near syncope/sinus bradycardia-patient describes sensation of room spinning. He states he has had vertigo in the past but not this bad. Patient was noted to have episodes of bradycardia with heart rate in the 30s while sleeping at night. Symptoms of dizziness/vertigo continued while heart rate was within normal limits. Patient sinus bradycardia during the daytime with heart rate in the 50s. Patient will be discharged with 30 day event monitor to be read by Dr. Shay. Echocardiogram showed an estimated ejection fraction of 65%, RVSP estimated to be 23 mmHg. MRI of the brain unremarkable. TSH and electrolytes within normal limits. Patient will be discharged on meclizine and follow-up with primary care physician. 2. Chest pain-denies further chest pain since admission. Troponin negative ? 4. EKG without ST-T changes. 3. Chronic iron deficiency anemia with recent GI bleed-hemoglobin within normal limits. Continue iron supplementation. 4. History of tobacco use with recent cessation-encouraged continued cessation. General: Alert, Oriented x3, Cooperative, No apparent distress HEENT: Atraumatic, PERRLA, EOMI, Normocephalic Neck: Supple, No JVD, Negative Carotid Bruits Lungs: Clear to auscultation, Normal air movement Cardiovascular: Bradycardic, Regular Rhythm, Normal S1, Normal S2, No murmurs Abdomen: Bowel Sounds Present, Soft, Non Tender, Non-Distended Extremities: No clubbing, No cyanosis, No edema, Capillary Refill Less than 3 Seconds Skin: No rashes, No breakdown Musculoskeletal: No Tenderness to Palpation of Joints or Extremities Neurological: Cranial nerves II-XII grossly intact, Neuro grossly intact Psych/Mental Status: Normal Affect, Appropriate Patient seen and examined prior to discharge. Physical assessment as noted above. Patient stable for discharge home with recommendations as noted above. This patient was seen by CHARLENE Greenfield under the supervision of Dr. Jones. Discharge Diet: No Restrictions Discharge Activity: Return to Normal Activity Call your doctor if you observe: Numbness or Tingling, Shortness of breath, Dizziness, Fainting spells, Chest pain, Increased palpitations (irregular heartbeat) Home Medications: Medications to take at Discharge Ferrous Sulfate 325 mg PO DAILY 12/08/17 Thiamine HCl [Vitamin B-1] 50 mg PO DAILY 12/09/17 Meclizine HCl [Antivert] 25 mg PO Q6H #30 tab 12/10/17 Following Prescrptions Were Given to Patient: Meclizine HCl [Antivert] 25 mg PO Q6H #30 tab Other Amb Orders: 30-Day Event Recorder [[facility]] Location: None Selected Primary Care Physician: Kervin Santana MD [Primary Care Provider] - Keep Constance appointment Please follow up with your Primary Care Physician in: 3-5 Days Patient Instructions: ED BPV Vertigo Medical Necessity - Tobacco Use Smoking Status: Former smoker Tobacco Use: Non-smoker Meaningful Use Info Meaningful Use Diagnoses (Choose all that apply): None applicable <Pritesh Jones - Last Filed: 12/10/17 15:36> Discharge Date and Diagnosis - Secondary Discharge Diagnosis Chronic Problems Iron deficiency anemia (Chronic) GI bleed (Chronic) Hearing impairment (Chronic) History of tobacco use (Chronic) History of marijuana use (Chronic) Hospital Course and Treatment Summary of Care Provided: 42-year-old gentleman who presented with episodes of palpitations with near syncope. Patient patient was admitted to a monitored bed for subsequent evaluation. 2D echo obtained as part of patient's did not reveal any structural heart disease. Patient was placed on continuous telemetry monitoring and was found to have bradycardia while sleeping the 30s and 50s during the daytime. Patient was therefore discharged home with a Holter monitor Hospital Course as elicited above by Betsey Callahan COAT CHECKER Was seen and examined on the day of his discharge his discharge instructions, med reconciliation as well as follow-up reviewed total time spent on discharge process 35 minutes Code Visit OBSV E&M: 14428 Observation care discharge
== END 2017-12-10 16:42 | disposition home or self-care (01) ==
LOC: ED 12-09 → PCU 12-09 00:41
PROVIDERS: Nurse Practitioner Family; Admitting Provider Family Medicine; Emergency Provider Emergency Medicine; Family Provider Family Medicine; PCP Family Medicine; Visit Provider Internal Medicine
DX: R07.89 Other chest pain (principal); R55 Syncope and collapse; R42 Dizziness and giddiness; D50.9 Iron deficiency anemia, unspecified; H91.90 Unspecified hearing loss, unspecified ear; R06.02 Shortness of breath; Z79.899 Other long term (current) drug therapy; Z87.891 Personal history of nicotine dependence
CPT/HCPCS: 36415; 70553; 71046; 80048; 80307; 83735; 84443; 84484; 85025; 85027; 93005; 93306; 96360; 96361; 99218; 99284; 99406; A9585; J7030; A4216; G0378

== ENCOUNTER → 2018-01-19 11:28 | Outpatient (CLI) | payer OTHER, SELFPAY ==
--- NOTE | 2018-01-19 19:39 | STRESSREP_ITS ---
Stress Test Report Exercise stress test. 42-year-old male with a history of chest pain. Stress protocol: Resting EKG demonstrates sinus bradycardia with a rate of 57 bpm normal intervals and noted resting blood pressure is 108/70 mmHg. The patient exercised according to regular Aristides protocol for total duration of 11 minutes and 30 seconds which was 2 minutes and 30 seconds to stage IV of the Aristides protocol. The maximum heart rate attained was 157 beats minute which was 87% of maximum predicted heart rate the maximum workload attained was 13.7 metabolic equivalents. The patient maintained sinus rhythm throughout the recording. At rest there were no ST or T-wave changes noted suggest ischemia at peak exercise no ST or T-wave changes were noted suggest ischemia. Occasional premature ventricular complexes were noted during recovery. No clinical angina was noted the patient did experience sharp chest discomfort though. The resting blood pressure is 108/70 with a final blood pressure 130/ 80 mmHg. Conclusion 1 Exercise stress test with no evidence of ischemia at a high workload.
== END ==
PROVIDERS: Family Provider Family Medicine; PCP Family Medicine; Visit Provider Internal Medicine Cardiovascular Disease
DX: R07.9 Chest pain, unspecified (principal)
CPT/HCPCS: 93017

== ENCOUNTER 2018-04-20 01:20 | Emergency (ER) | payer OTHER, SELFPAY ==
[2018-04-20 01:21] VITALS: BP 152/96; PULSE 76; RESP 20; TEMP 36.8; O2SAT 99; BMI 17.6
--- NOTE | 2018-04-20 01:32 | ED.DCSUM_ITS ---
- ER Visit Summary Date of Service: 04/20/18 Chief Complaint: Left thigh laceration History of Present Illness: The patient is a 42 M presents to the emergency department left thigh laceration. The patient had a new pocket knife. He was trying to get something out of his fingernail dropped a knife. It punctured the anterior aspect of his left thigh. He does admit to some pain. He states the bleeding is stopped. His tetanus was 6 years ago. He is on no anticoagulants. Patient does have history of migraines, but is otherwise healthy. Physical Examination: Examination is relatively unremarkable. Patient has a 2 cm puncture wound on the anterolateral aspect of the left thigh. It is approximately 10 cm proximal to the patella. His compartments are soft. There is no active bleeding. Extension is preserved. There is no hematoma. Test Results: [] Emergency Department Course and Treatment: Patient's wound was anesthetized. It was explored. There is no evidence of tendinous injury. The wound was irrigated with 250 cc of normal saline. The wound edges were reapproximated easily with 2 space 4-0 simple interrupted suture. Patient tolerated this without issue. He will be placed on anti-inflammatories. He was counseled on wound care and reasons to return. Patient be discharged home. Treatment Plan: [] Disposition: Discharge Impression: 1. 2 cm left thigh laceration with repair This note was generated with [employer] dictation software. It may contain incorrect words, spelling, and punctuation that were not noted in review of the chart prior to signing ED Disposition - Plan for ED Patient: Chief Complaint: Laceration Instructions: ED Laceration All Prescriptions: Naproxen [Naprosyn] 500 mg PO BID PRN #20 tab Referrals: Kervin Santana MD [Primary Care Provider] - 10 Day for suture removal
[2018-04-20] MEDS: HYDROcodone Bitartrate/Apap 5/325 Tablet PO (01:35)
[2018-04-20 02:17] VITALS: RESP 18
== END 2018-04-20 02:18 | disposition home or self-care (01) ==
LOC: ED 01:33
PROVIDERS: Emergency Provider Emergency Medicine; Family Provider Family Medicine; PCP Family Medicine
DX: S71.112A Laceration without foreign body, left thigh, initial encounter (principal); W26.0XXA Contact with knife, initial encounter; Y93.9 Activity, unspecified; Y92.9 Unspecified place or not applicable; G43.909 Migraine, unspecified, not intractable, without status migrainosus
CPT/HCPCS: 12001; 99284

== ENCOUNTER 2018-11-26 17:14 | Emergency (ER) | payer OTHER, SELFPAY ==
[2018-11-26 17:14] VITALS: BMI 16.9
[2018-11-26 17:15] VITALS: BP 136/91; PULSE 69; RESP 14; TEMP 36.6; O2SAT 100; BMI 19.2
[2018-11-26] MEDS: Acetaminophen 500 MG Tablet 1000 MG PO (17:48)
[2018-11-26] MEDS: Ondansetron ODT 4 MG Tablet PO (17:48)
--- NOTE | 2018-11-26 18:05 | ED.DCSUM_ITS ---
- ER Visit Summary Date of Service: 11/26/18 Chief Complaint: Sore throat History of Present Illness: The patient is a 43 M presenting with sore throat. He states this started 1.5 days ago. He has painful swallowing but no difficulty swallowing. He also is concerned that he may have the flu. He has had subjective fever and chills. He complains of cough and myalgias. He is a smoker. Denies other complaints. Physical Examination: Vitals are stable. Patient is afebrile. Alert no acute distress. HEENT exam pharyngeal erythema with no exudate, uvula midline Neck is supple. No meningismus Lungs are clear and equal bilaterally. Heart is regular rate and rhythm. Abdomen is soft nontender nondistended. Extremities are unremarkable. Skin is warm and dry. No rash No focal neurologic deficit. Remainder of exam is unremarkable. Emergency Department Course and Treatment: Patient given Decadron, Tylenol, Zofran. Influenza negative. Rapid strep negative. On reevaluation, patient is resting comfortably. He is feeling improved. He is given a prescription for Naprosyn. He is advised to follow-up with his primary care physician. Advised return to ED for worsening complaints. Disposition: Discharge home Impression: Viral syndrome This note was generated with [employer] dictation software. It may contain incorrect words, spelling, and punctuation that were not noted in review of the chart prior to signing ED Disposition - Plan for ED Patient: Instructions: ED Pharyngitis Viral Prescriptions: Naproxen [Naprosyn] 500 mg PO BID PRN #20 tablet Referrals: Kervin Santana MD [Primary Care Provider] -
--- NOTE | 2018-11-26 19:18 | ED.DEP ---
ED Disposition - Plan for ED Patient: Instructions: ED Pharyngitis Viral Prescriptions: Naproxen [Naprosyn] 500 mg PO BID PRN #20 tablet Referrals: Kervin Santana MD [Primary Care Provider] -
--- NOTE | 2018-11-26 19:25 | ED.RN ---
DISCHARGE INSTRUCTIONS GIVEN TO AND REVIEWED WITH PATIENT, PATIENT DENIES QUESTIONS OR CONCERNS AND VOICES UNDERSTANDING OF DISCHARGE INSTRUCTIONS. PT AMBULATES OUT OF ROOM WITHOUT DIFFICULTY.
--- NOTE | 2018-11-29 01:10 | ED.RN ---
Pt stops into ED tonight stating he got called stating he needs a new rx for strep throat. After investigating, PT is indeed positive, no notes stating any rx has been called. Dr. Russo consulted and rx for zithromyacin was called into [facility]. PT updated and educated on rx. PT informed to have DDM call with any problems.
== END 2018-11-26 19:26 | disposition home or self-care (01) ==
PROVIDERS: Emergency Provider Emergency Medicine; Family Provider Family Medicine; PCP Family Medicine
DX: B34.9 Viral infection, unspecified (principal); J02.9 Acute pharyngitis, unspecified; R05 Cough; M79.10 Myalgia, unspecified site; R11.0 Nausea; R06.00 Dyspnea, unspecified; M54.2 Cervicalgia; F17.200 Nicotine dependence, unspecified, uncomplicated
CPT/HCPCS: 87077; 87804; 87880; 99282

== ENCOUNTER 2019-07-26 14:26 | Emergency (ER) | payer OTHER, SELFPAY ==
[2019-07-26 14:27] VITALS: BP 137/85; PULSE 78; RESP 16; TEMP 36.8; O2SAT 100; BMI 18.1
--- NOTE | 2019-07-26 15:00 | CT_ITS ---
STUDY: CT BRAIN WITHOUT CONTRAST REASON FOR EXAM: Male, 43 years old. Dizziness. Left lower extremity weakness and numbness. RADIATION DOSAGE (If Supplied By Facility): CTDIvol = ( 60.81 ) mGy, DLP = ( 1067.08 ) mGycm TECHNIQUE: Transaxial CT imaging of the brain was performed without administration of intravenous contrast material. Individualized dose optimization techniques were used for this CT. COMPARISON: No relevant priors. FINDINGS: Normal soft tissue structures. Normal calvarium. Normal size ventricles and extra-axial spaces for the patient's age. Normal white matter tracts of the cerebral hemispheres. Normal basal ganglia and thalami. Normal brainstem. Normal cerebellum. There is no intracranial hemorrhage. There are no findings of an acute ischemic infarction. Normal visualized paranasal sinuses. CT/Brain/Head without Contrast IMPRESSION: Normal unenhanced CT scan of the brain. Electronically Signed: Ritesh Muñoz, at 15:52 EDT , Service support ,
--- NOTE | 2019-07-26 15:02 | EKG12_ITS ---
Test Reason : MHC Blood Pressure : / mmHG Vent. Rate : 064 BPM Atrial Rate : 064 BPM P-R Int : 136 ms QRS Dur : 090 ms QT Int : 456 ms P-R-T Axes : 076 074 068 degrees QTc Int : 470 ms Normal sinus rhythm with sinus arrhythmia Normal ECG Confirmed by GARFIELD GUIDO, NICKI ([id number]), news assignment editor ISHA HASTINGS ([id number]) on 07/31/2019 8:35:16 AM Referred By: DEWEY Confirmed By:SHIRLEY MERRILL MD
--- NOTE | 2019-07-26 15:04 | ED.DCSUM_ITS ---
- ER Visit Summary Date of Service: 07/26/19 Chief Complaint: Vertigo History of Present Illness: The patient is a 43 M with vertigo for an hour. He describes the room is spinning. He thinks this is from decreased sleep and increased stress. He has associated nausea and vomiting. Symptoms are worse when he moves his head or changes positions. He has a history of vertigo. Patient also reports suicidal ideation. This has been going on and getting worse for 4 days. He says he screwed up. He was drinking heavily on Wednesday. He went to a hotel with a friend and used heroin for the first time. He says he overdosed and required CPR. Because of his decisions, he says he has thoughts of shooting himself. He has access to guns in the home. He said his father took the guns away after he asked him to do so. Physical Examination: Afebrile and vital signs unremarkable. Alert and oriented. No acute distress. Blunted mood and flat affect. HEENT exam unremarkable. Cranial nerves grossly intact. Neck good range of motion. Heart regular. Lungs clear. Skin normal. Extremities good strength and sensation. Test Results: EKG, labs, tox screen, alcohol, CT brain pending. Emergency Department Course and Treatment: Patient had suicide precautions. He was treated with Ativan for his vertigo symptoms while awaiting results. Hemoglobin 20.1 0.1 and potassium 3.0. Creatinine 1.49. Patient was treated with K-Dur by mouth and also an IV fluid bolus for his kidney function. His total bilirubin was 3.90. It was previously normal years ago. I added on hepatitis panel and will check a CT of his abdomen and pelvis. CT brain was unremarkable. Alcohol was negative. Tox screen is pending. Patient is improved on reevaluation. We will continue to monitor and follow-up with the rest of his testing. CT of his abdomen and pelvis showed a left adrenal nodule likely an adenoma. Nothing to explain his elevated bilirubin. The patient's labs and imaging were discussed. He will need outpatient follow-up regarding his elevated bilirubin, nodule, and other labs. This can be done as an outpatient, not emergently. Patient is medically stable for psychiatric care. Will contact crisis counselor. Patient is doing well. No neurologic complaints. No pain or other symptoms. Will order a diet for him. Treatment Plan: As above Disposition: Pending crisis evaluation Impression: 1. Suicidal ideation 2. Heroin use 3. Vertigo 4. Hypokalemia 5. Hyperbilirubinemia This note was generated with [employer] software. It may contain incorrect words, spelling, and punctuation that were not noted in review of the chart prior to signing ED Disposition - Plan for ED Patient: Referrals: Kervin Santana MD [Primary Care Provider] -
[2019-07-26 15:26] LABS: Absolute Lymphocyte Count 1.46 X10^3/uL (0.83-4.51); Absolute Neutrophil Count 7.2 X10^3/uL (2.0-7.7); Basophil# 0.07 X10^3/uL; Basophil% 0.7 % (0-1); Eosinophil# 0.02 X10^3/uL; Eosinophils% 0.2 % (0-5); Lymphocyte # 1.46 X10^3/ul (4.0); Lymphocyte % 15.3 % (19-41); Mean Corp Hgb Conc 34.9 g/dL (32-36); Mean Corpuscular Hgb 32.9 pg (27.0-32.0); Mean Corpuscular Volume 94.2 fL (80-94); Mean Platelet Vol. 9.9 fl (6.2-12.0); Monocyte# 0.78 X10^3/uL; Monocyte% 8.2 % (0-10); NRBC Flagged by Analyzer 0 % (0-5); Neutrophil # 7.16 X10^3/uL (2.7-7.7); Neutrophil % 75.2 % (47-70); Platelet Count 199 K/mm3 (150-450); RBC Distribution Width CV 13.5 % (11.6-14.6); RBC Distribution Width SD 46.7 fl (35.1-43.9); Red Blood Count 6.41 M/mm3 (4.6-6.2); White Blood Count 9.5 K/mm3 (4.4-11.0)
[2019-07-26] MEDS: LORazepam 2 MG/ML Syringe 1 MG IV (15:26)
[2019-07-26 15:35] LABS: Hematocrit 60.4 % (40-54)
[2019-07-26 15:36] LABS: Hemoglobin 21.1 g/dL (13.0-16.5)
[2019-07-26 15:39] LABS: ALB/GLOB Ratio 0.9 RATIO (0.9-2.4); AST(SGOT) 27 U/L (15-37); Alanine Aminotransfer ALT/SGPT 27 U/L (16-61); Albumin, Serum 3.7 g/dL (3.2-5.0); Alkaline Phosphatase 85 U/L (45-117); Anion Gap 9 (5-15); BUN 12 mg/dL (7-18); BUN/Creat Ratio 8.1 RATIO (10-20); Calcium,Total 9.5 mg/dL (8.5-10.1); Chloride 100 mmol/L (98-107); Creatinine, Serum 1.49 mg/dL (0.70-1.30); EST Glomerular Filtration Rate 55 mL/min (>60); Est Glom Filt Rate - Afr Amer 67 mL/min (>60); Estimated Creatinine Clearance 65.24 ml/min; Globulin 3.9 g/dL (2.2-4.2); Glucose 92 mg/dL (74-106); Protein, Total 7.6 g/dL (6.4-8.2); Sodium Level 139 mmol/L (136-145)
[2019-07-26 16:00] VITALS: BP 121/78; PULSE 71; RESP 16; O2SAT 97
[2019-07-26 16:09] LABS: Alcohol, Blood (Medical)-Serum < 3.0 mg/dL
--- NOTE | 2019-07-26 16:22 | CT_ITS ---
STUDY: CT ABDOMEN AND PELVIS WITH CONTRAST REASON FOR EXAM: Male, 43 years old. Pain and jaundice RADIATION DOSAGE (If Supplied By Facility): DLP = ( 316.84 ) mGycm TECHNIQUE: Transaxial images were obtained from the dome of the diaphragm to the symphysis pubis without oral contrast. 100ML ml of Gastrografin and amp; 100mL Isovue-370 contrast was administered. Sagittal and coronal images were reconstructed. Individualized dose optimization techniques were used for this CT. COMPARISON: None. FINDINGS: The visualized lung bases are clear. The visualized portions of the heart and pericardium are within normal limits. There are no calcified gallstones present. The liver is within normal limits. There are no suspicious hepatic lesions. The spleen is normal in size. The pancreas is within normal limits. There is a left adrenal 1.6 cm nodule. The right adrenal gland is unremarkable in appearance. There are no obstructing renal stones. There is no hydronephrosis. There is a left renal upper pole 1.5 cm cyst with associated calcification. There is a left renal mid to upper pole 3 mm stone. Normal visualized stomach. There is no bowel obstruction or inflammation. The appendix is normal. The aorta is normal in caliber. There is no abdominal or pelvic free air, free fluid, fluid collection or lymphadenopathy. There are no destructive osseous lesions. CT/Abdomen/Pelvis WITH Contrast IMPRESSION: No acute abdominal or pelvic pathology. Left adrenal 1.6 cm nodule, likely representing an adenoma, although inconclusive on single phase CT evaluation. Electronically Signed: Piotr Perez, at 18:26 EDT Tel , Service support ,
[2019-07-26 16:53] VITALS: BMI 18.1
[2019-07-26] MEDS: 0.9% Normal Saline 1,000 ML 1000 ML IV (17:06)
[2019-07-26 17:42] LABS: Amphetamine Urine VISTA NEGATIVE (<1000 ng/mL); Barbiturate Urine VISTA NEGATIVE (< 200 ng/mL); Benzodiazepine Urine VISTA NEGATIVE (< 200 ng/mL); Cocaine Urine VISTA NEGATIVE (< 300 ng/mL); Ecstacy Urine VISTA NEGATIVE (< 500 ng/mL); Methadone Urine VISTA NEGATIVE (< 300 ng/mL); PCP Urine VISTA NEGATIVE (< 25 ng/mL); THC Urine VISTA NEGATIVE (< 50 ng/mL); Vista UDS pH Range 6
--- NOTE | 2019-07-26 19:40 | ED.RN ---
CALLED CRISIS TO SEE THIS PT, JULIETA IS TONG SETTER
--- NOTE | 2019-07-26 19:42 | ED.RN ---
[facility] CALLED BACK. CRISIS AT ANOTHER HOSPITAL. CRISIS AWARE. WILL BE IN TO SEE PATIENT ONCE THEY ARE DONE
[2019-07-26 20:48] VITALS: RESP 16
[2019-07-26 21:00] VITALS: PULSE 54; RESP 16
[2019-07-26 23:00] VITALS: BP 155/97; PULSE 52; RESP 16; O2SAT 97
[2019-07-27 00:32] VITALS: RESP 16
[2019-07-27 02:30] VITALS: BP 159/94; PULSE 70; RESP 16; O2SAT 97
[2019-07-27 04:24] VITALS: BP 150/94; PULSE 70; RESP 16; TEMP 36.7; O2SAT 97
[2019-07-27 04:32] VITALS: RESP 18
[2019-07-27 13:44] LABS: Pathologist Review Reviewed
[2019-07-28 05:06] LABS: HEPATITIS B SURFACE AG Negative (Negative); Hepatitis A IgM Antibody Negative (Negative); Hepatitis B Core AB IgM Negative (Negative)
[2019-07-28 12:31] LABS: Hep C Antibodies 0.2 s/co ratio (0.0-0.9)
== END 2019-07-27 05:47 ==
PROVIDERS: Emergency Provider Emergency Medicine; Family Provider Family Medicine; PCP Family Medicine
DX: R45.851 Suicidal ideations (principal); F11.90 Opioid use, unspecified, uncomplicated; R42 Dizziness and giddiness; E87.6 Hypokalemia; R17 Unspecified jaundice; Z86.2 Personal history of diseases of the blood and blood-forming organs and certain disorders involving the immune mechanism; Z87.19 Personal history of other diseases of the digestive system; F17.200 Nicotine dependence, unspecified, uncomplicated
CPT/HCPCS: 70450; 74177; 80053; 80074; 80307; 80320; 85025; 93005; 96361; 96374; 99285; Q9967; A4216; G0480

== ENCOUNTER 2020-04-06 16:19 | Emergency (ER) | payer BC, SELFPAY ==
[2020-04-06 16:20] VITALS: BP 138/100; PULSE 70; RESP 16; TEMP 36.4; BMI 17.0
[2020-04-06 16:22] VITALS: BP 138/100; PULSE 70; RESP 16; TEMP 36.4
--- NOTE | 2020-04-06 16:40 | ED.VIS.GEN ---
History of Present Illness Chief Complaint: Nausea/Vomiting Informant: Patient Narrative: Patient is a 44-year-old male with a past medical history of hypertension who presents to the emergency department for feeling dehydrated. States he has been nauseous and vomiting since yesterday. He has developed some abdominal pain. He had 2 episodes of diarrhea that has been nonbloody. He was recently started on an antibiotic for a sinus infection. He does not recall the name of the antibiotic. He has not had any fevers or chills. He denies any chest pain or shortness of breath. States he has been trying to drink plenty water but feels like his throat is very dry. Denies any sore throat. Denies any ear pain. The majority of his abdominal pain goes across the lower abdomen bilaterally. Previous abdominal surgeries include a hernia repair and for what sounds like an undescended testicle as an infant. He denies any urinary symptoms. No rashes. He does not know aggravating or relieving factors to abdominal pain. Currently rates it as mild. He is still complaining of nausea at this time. He is a current everyday smoker. Drinks alcohol occasionally. Denies drug use. Past Medical History - Allergies and Home Meds Allergies/Adverse Reactions: Allergies amoxicillin [Amoxicillin] Adverse Reaction (Verified 07/26/19 14:30) Nausea citalopram hydrobromide [From Celexa] Adverse Reaction (Verified 07/26/19 14:30) Nausea Primary Care Physician: Kervin Santana MD [Primary Care Provider] - 2 Days Prior records reviewed: Yes Past Medical History: - - Restless leg syndrome, hypertension Surgical History: - - R hand surgery s/p trauma, R inguinal hernia repair, Umbilical hernia repair. Smoking Status: Current every day smoker Alcohol: Occasional Drugs: None - Family History Maternal Family History: Reports: No pertinent history Paternal Family History: Reports: Cancer - Throat CA, currently being treated. Review of Systems All systems negative except as indicated General: Denies: Chills, Fever, Sweats Eyes: Denies: Visual changes - bilaterally, Diplopia ENT: Denies: Bilateral ear pain, Rhinorrhea, Sore throat Cardiovascular: Denies: Chest pain, Palpitations Respiratory: Denies: Dyspnea, Cough, Dyspnea on exertion Gastrointestinal: Reports: Abdominal pain, Nausea, Vomiting, Diarrhea. Denies: Melena, Hematochezia Genitourinary: Denies: Dysuria, Hematuria, Frequency Musculoskeletal: Denies: Back pain, Extremity Pain Skin: Denies: Rash, Wounds Neurological: Denies: Headache, Weakness, Numbness Physical Exam Vital Signs/Narrative: Vital Signs Temp Pulse Resp BP 04/06/20 16:22 97.6 F L 70 16 138/100 H 04/06/20 16:20 97.6 F L 70 16 138/100 H Inital Vital Signs reviewed: Yes General: Well nourished, Well developed, No Acute Distress Head: Normocephalic, Atraumatic Eyes: Perrl, EOMI ENT: Moist mucous membranes, No rhinorrhea Neck: Supple, Nontender Cardiovascular: Regular rate, Regular rhythm, No murmurs Respiratory: No distress, CTA bilaterally, Chest nontender Abdomen: Soft, Nondistended, Normal bowel sounds, Tender - Mild to deep palpation of the lower quadrants bilaterally. No peritoneal signs present.. Negative for: Guarding, Rebound tenderness Back: Nontender, Normal Inspection Extremities: Nontender, No edema Skin: Normal color, No rash Neurological: Alert, Oriented x3, Cranial nerves II-XII grossly intact, Normal Strength, Normal Sensation Psychological: Normal affect, Normal Mood Diagnostic/Tx/Re-eval - Medical Decision Making Patient presents to emergency department for nausea and vomiting and subsequently has developed some lower quadrant abdominal pain. Upon arrival to the emerge department vital signs within normal limits. Physical exam is benign. Will check basic lab work and treat symptomatically with IV fluids and Zofran. Patient's lab work-up did not reveal any significant acute abnormality. CT scan obtained as he was still having abdominal pain throughout ED stay. This was only significant for an incidental finding for an adrenal nodule. He was already aware of this. He understands he needs to follow-up with his PCP for this. After dose of Toradol he is starting to feel better. He states he is hungry and wants to eat. Was able to tolerate crackers here in the emergency department. At this time will discharge home in stable condition. He needs follow-up with his PCP for this abdominal pain. Warning signs and symptoms for which to return to the emerge department including any worsening pain developing any systemic symptoms were reviewed with him. He understands and is agreeable with this plan. ED Disposition - Plan for ED Patient: Disposition: Home or Assisted Living Diagnosis: Abdominal pain, Nausea and vomiting, Adrenal nodule Instructions: ED Nausea Vomiting Adult, ED Unknown Causes of Abdominal Pain Male Referrals: Kervin Santana MD [Primary Care Provider] - 2 Days
[2020-04-06 16:51] VITALS: BP 131/81; PULSE 74; RESP 15; TEMP 36.7; O2SAT 98
[2020-04-06 16:56] LABS: Mucous, Urine 0 SEEN /hpf (<or=2+); Red Blood Cells-Urine 0 SEEN /hpf (0-5); Squamous Epithelial Cells - UA 0 SEEN /hpf (0-5)
[2020-04-06 16:57] LABS: Color, Urine Yellow (Yellow); Glucose, Dipstick Normal (Normal); Ketone-Dipstick Negative (Negative); Leukocyte Esterase-Dipstick 100 /ul (Negative); Nitrite-Dipstick Negative (Negative); Occult Blood-Urine Negative /ul (Negative); Protein-Dipstick 15 mg/dl (Negative); Urine Bilirubin Dipstick Negative (Negative); Urine Clarity Clear (Clear); Urine Urobilinogen 1 mg/dl (Normal); Urine pH 6.5 (5.0 - 8.0)
[2020-04-06] MEDS: Ondansetron 4 MG/2 ML Vial IV (17:03)
[2020-04-06] MEDS: 0.9% Normal Saline 1,000 ML 999 ML IV (17:03)
[2020-04-06 17:07] LABS: Absolute Lymphocyte Count 1.44 X10^3/uL (0.83-4.51); Absolute Neutrophil Count 5.9 X10^3/uL (2.0-7.7); Basophil# 0.03 X10^3/uL; Basophil% 0.4 % (0-1); Eosinophil# 0.07 X10^3/uL; Eosinophils% 0.9 % (0-5); Hematocrit 48.6 % (40-54); Hemoglobin 16.2 g/dL (13.0-16.5); Lymphocyte # 1.44 X10^3/ul (4.0); Lymphocyte % 17.9 % (19-41); Mean Corp Hgb Conc 33.3 g/dL (32-36); Mean Corpuscular Hgb 31.9 pg (27.0-32.0); Mean Corpuscular Volume 95.7 fL (80-94); Mean Platelet Vol. 9.9 fl (6.2-12.0); Monocyte# 0.63 X10^3/uL; Monocyte% 7.8 % (0-10); NRBC Flagged by Analyzer 0 % (0-5); Neutrophil # 5.85 X10^3/uL (2.7-7.7); Neutrophil % 72.8 % (47-70); Platelet Count 277 K/mm3 (150-450); RBC Distribution Width CV 12.4 % (11.6-14.6); RBC Distribution Width SD 44.2 fl (35.1-43.9); Red Blood Count 5.08 M/mm3 (4.6-6.2)
[2020-04-06 17:08] LABS: Bacteria RARE /hpf (None Seen); White Blood Cells 0-5 SEEN /hpf (0-5)
[2020-04-06 17:24] LABS: ALB/GLOB Ratio 0.9 RATIO (0.9-2.4); AST(SGOT) 20 U/L (15-37); Alanine Aminotransfer ALT/SGPT 24 U/L (16-61); Albumin, Serum 3.6 g/dL (3.2-5.0); Alkaline Phosphatase 66 U/L (45-117); Anion Gap 5 (5-15); BUN 6 mg/dL (7-18); BUN/Creat Ratio 6.5 RATIO (10-20); Calcium,Total 9.2 mg/dL (8.5-10.1); Chloride 105 mmol/L (98-107); Creatinine, Serum 0.93 mg/dL (0.70-1.30); EST Glomerular Filtration Rate 95 mL/min (>60); Est Glom Filt Rate - Afr Amer 115 mL/min (>60); Estimated Creatinine Clearance 76.54 ml/min; Globulin 3.8 g/dL (2.2-4.2); Glucose 63 mg/dL (74-106); Lipase 170 U/L (73-393); Potassium 3.7 mmol/L (3.5-5.1); Protein, Total 7.4 g/dL (6.4-8.2); Sodium Level 141 mmol/L (136-145)
--- NOTE | 2020-04-06 17:53 | CT_ITS ---
STUDY: CT ABDOMEN AND PELVIS WITH CONTRAST REASON FOR EXAM: Male, 44 years old. LLQ PAIN, VOMITING RADIATION DOSAGE (If Supplied By Facility): CTDIvol = ( 9.13 ) mGy, DLP = ( 256.78 ) mGycm TECHNIQUE: Transaxial images were obtained from the dome of the diaphragm to the symphysis pubis with oral contrast. Oral and amp; IV Gastrografin and amp; 100mL Isovue-370 was administered. Sagittal and coronal images were reconstructed. Individualized dose optimization techniques were used for this CT. COMPARISON: 07/26/2019 FINDINGS: The visualized lung bases are unremarkable. The visualized portions of the heart are within normal limits. Normal liver. Normal gallbladder and extrahepatic biliary system. Normal spleen. Normal pancreas. Stable indeterminate 22 x 22 mm left adrenal nodule. Consider follow-up adrenal MRI if clinically indicated. Normal right kidney. 17 mm left renal cyst containing milk of calcium. Normal visualized stomach. Normal small intestine. Normal colon. The appendix is visualized and appears normal. Normal abdominal aorta. Normal inferior vena cava. Normal retroperitoneum. Normal urinary bladder. Normal abdominal wall. Normal osseous structures. CT/Abdomen/Pelvis WITH Contrast IMPRESSION: No evidence of appendicitis, acute intestinal pathology, or acute obstructive uropathy. Stable indeterminate 22 x 22 mm left adrenal nodule. Consider follow-up adrenal MRI if clinically indicated. Electronically Signed: Shelton Jose MD at 20:36 EDT Tel , Service support ,
[2020-04-06] MEDS: Ketorolac 30 MG/ML Syringe IV (18:56)
[2020-04-06 18:58] VITALS: BP 136/79; PULSE 54; RESP 16; O2SAT 99
[2020-04-06 21:00] VITALS: BP 133/97; PULSE 54; RESP 18; O2SAT 100
== END 2020-04-06 21:00 | disposition home or self-care (01) ==
PROVIDERS: Emergency Provider Emergency Medicine; PCP Family Medicine
DX: R11.2 Nausea with vomiting, unspecified (principal); R10.31 Right lower quadrant pain; R10.32 Left lower quadrant pain; R19.7 Diarrhea, unspecified; I10 Essential (primary) hypertension; J32.9 Chronic sinusitis, unspecified; G25.81 Restless legs syndrome; F17.200 Nicotine dependence, unspecified, uncomplicated; Z79.899 Other long term (current) drug therapy
CPT/HCPCS: 74177; 80053; 81001; 83690; 85025; 96361; 96374; 96375; 99283; J7030; Q9967; A4216; J2405

== ENCOUNTER 2020-05-10 18:23 | Emergency (ER) | payer BC, SELFPAY ==
[2020-05-10 18:25] VITALS: BP 132/98; PULSE 57; RESP 16; TEMP 37.1; O2SAT 97; BMI 17.1
--- NOTE | 2020-05-10 18:36 | EKG12_ITS ---
Test Reason : SYNCOPE Blood Pressure : / mmHG Vent. Rate : 045 BPM Atrial Rate : 045 BPM P-R Int : 138 ms QRS Dur : 092 ms QT Int : 520 ms P-R-T Axes : 046 083 072 degrees QTc Int : 449 ms Sinus bradycardia Otherwise normal ECG Confirmed by ALLEGRA GUIDO, CAS ([id number]), proposal editor MELLY RANKIN ([id number]) on 05/13/2020 2:34:45 PM Referred By: Confirmed By:CAS DINH MD
--- NOTE | 2020-05-10 18:40 | ED.VIS.GEN ---
History of Present Illness Chief Complaint: Syncope Informant: Patient, Family Narrative: Patient states that he went to work today around 1600 hrs. He began to have vertigo and took several of his meclizine. He went outside and vomited numerous times. He went home and told his grandmother to get ready. Apparently got in the car wanted to come to the emergency room and went unresponsive in route to the hospital. He was pulled from the car by bystanders and placed in a wheelchair. He is then brought to the resuscitation room. It was noted that he had normal skin color a pulse and when I touched his eyelashes he would blink. At this point I asked him to open his eyes any could not could speak to me. He then asked how long he was unconscious for. 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 He denies any other drug ingestions. Past Medical History - Allergies and Home Meds Allergies/Adverse Reactions: Allergies amoxicillin [Amoxicillin] Adverse Reaction (Verified 05/10/20 18:34) Nausea citalopram hydrobromide [From Celexa] Adverse Reaction (Verified 05/10/20 18:34) Nausea Primary Care Physician: Kervin Santana MD [Primary Care Provider] - 3-5 Days Surgical History: - - R hand surgery s/p trauma, R inguinal hernia repair, Umbilical hernia repair. Smoking Status: Current every day smoker - Family History Maternal Family History: Reports: No pertinent history Paternal Family History: Reports: Cancer - Throat CA, currently being treated. Review of Systems General: Denies: Chills, Fever, Sweats Eyes: Denies: Visual changes - bilaterally, Diplopia ENT: Denies: Rhinorrhea, Sore throat Cardiovascular: Reports: - - Syncope. Denies: Chest pain, Palpitations, Heart racing Respiratory: Denies: Dyspnea, Cough, Dyspnea on exertion Gastrointestinal: Reports: Nausea, Vomiting. Denies: Abdominal pain, Diarrhea, Melena, Hematochezia Genitourinary: Denies: Dysuria, Hematuria, Frequency Musculoskeletal: Denies: Back pain, Extremity Pain Skin: Denies: Rash, Wounds Neurological: Reports: - - Room spinning (vertiginous). Denies: Headache, Weakness, Numbness Physical Exam Vital Signs/Narrative: Vital Signs Temp Pulse Resp BP Pulse Ox 05/10/20 18:25 98.7 F 57 L 16 132/98 H 97 Inital Vital Signs reviewed: Yes General: Well nourished, Well developed, No Acute Distress Head: Normocephalic, Atraumatic Eyes: Perrl - Pupils 5-3 bilaterally, EOMI ENT: Moist mucous membranes, No rhinorrhea Neck: Supple, Nontender Cardiovascular: Regular rate, Regular rhythm, No murmurs Respiratory: No distress, CTA bilaterally, Chest nontender Abdomen: Soft, Nontender, Nondistended, Normal bowel sounds Back: Nontender, Normal Inspection Extremities: Nontender, No edema Skin: Normal color, No rash Neurological: Alert, Oriented x3, Cranial nerves II-XII grossly intact, Normal Strength, Normal Sensation Psychological: Normal affect, Normal Mood Diagnostic/Tx/Re-eval Laboratory Last Values WBC 10.8 K/mm3 (4.4-11.0) 05/10/20 18: RBC 4.91 M/mm3 (4.6-6.2) 05/10/20 18: Hgb 15.1 g/dL (13.0-16.5) 05/10/20 18: Hct 44.7 % (40-54) 05/10/20 18: MCV 91.0 fL (80-94) 05/10/20 18: MCH 30.8 pg (27.0-32.0) 05/10/20 18: MCHC 33.8 g/dL (32-36) 05/10/20 18: RDW Std Deviation 40.1 fl (35.1-43.9) 05/10/20 18: RDW Coeff of Merry 11.9 % (11.6-14.6) 05/10/20 18: Plt Count 235 K/mm3 (150-450) 05/10/20 18: MPV 10.3 fl (6.2-12.0) 05/10/20 18: Immature Gran % (Auto) 0.200 % (0.0-0.9) 05/10/20 18: Neut % (Auto) 59.4 % (47-70) 05/10/20 18: Lymph % (Auto) 30.9 % (19-41) 05/10/20 18: [place] % (Auto) 7.9 % (0-10) 05/10/20 18:26 Eos % (Auto) 1.0 % (0-5) 05/10/20 18:26 Baso % (Auto) 0.6 % (0-1) 05/10/20 18:26 Absolute Neuts (auto) 6.4 X10^3/uL (2.0-7.7) 05/10/20 18:26 Absolute Lymphs (auto) 3.34 X10^3/uL (0.83-4.51) 05/10/20 18:26 Nucleated RBC % 0 % (0-5) 05/10/20 18:26 Sodium 143 mmol/L (136-145) 05/10/20 18:26 Potassium 3.1 mmol/L (3.5-5.1) L 05/10/20 18:26 Chloride 110 mmol/L (98-107) H 05/10/20 18:26 Carbon Dioxide 26.0 mmol/L (21.0-32.0) 05/10/20 18:26 Anion Gap 7 (5-15) 05/10/20 18:26 BUN 8 mg/dL (7-18) 05/10/20 18:26 Creatinine 0.92 mg/dL (0.70-1.30) 05/10/20 18:26 Estim Creat Clear Calc 77.85 ml/min 05/10/20 18:26 Est GFR (MDRD) Af Amer 116 mL/min (>60) 05/10/20 18:26 Est GFR (MDRD) Non-Af 96 mL/min (>60) 05/10/20 18:26 BUN/Creatinine Ratio 8.7 RATIO (10-20) L 05/10/20 18:26 Glucose 111 mg/dL (74-106) H 05/10/20 18:26 Calcium 8.7 mg/dL (8.5-10.1) 05/10/20 18:26 Total Bilirubin 1.40 mg/dL (0.20-1.00) H 05/10/20 18:26 AST 18 U/L (15-37) 05/10/20 18:26 ALT 26 U/L (16-61) 05/10/20 18:26 Alkaline Phosphatase 70 U/L (45-117) 05/10/20 18:26 Total Protein 7.0 g/dL (6.4-8.2) 05/10/20 18: Albumin 3.7 g/dL (3.2-5.0) 05/10/20 18: Globulin 3.3 g/dL (2.2-4.2) 05/10/20 18:26 Albumin/Globulin Ratio 1.1 RATIO (0.9-2.4) 05/10/20 18:26 Urine Opiates Screen NEGATIVE (< 300 ng/mL) 05/10/20 20:10 Urine Methadone Screen NEGATIVE (< 300 ng/mL) 05/10/20 20:10 Ur Barbiturates Screen NEGATIVE (< 200 ng/mL) 05/10/20 20:10 Ur Phencyclidine Scrn NEGATIVE (< 25 ng/mL) 05/10/20 20:10 Ur Amphetamines Screen NEGATIVE (<1000 ng/mL) 05/10/20 20:10 U Methamphetamin-MDMA NEGATIVE (< 500 ng/mL) 05/10/20 20:10 U Benzodiazepines Scrn NEGATIVE (< 200 ng/mL) 05/10/20 20:10 Urine Cocaine Screen NEGATIVE (< 300 ng/mL) 05/10/20 20:10 U Cannabinoids Screen NEGATIVE (< 50 ng/mL) 05/10/20 20:10 Ur Drug Screen Comment 05/10/20 20:10 Ethyl Alcohol 13.0 mg/dL 05/10/20 18:26 - EKG Initial EKG Interpretation: Sinus Rhythm - EKG demonstrates a sinus bradycardia at a rate of 45. - Medical Decision Making Received IV fluids and Zofran and Valium. Basic labs essentially negative. He has a history of bradycardia and while sleeping here drops into the 30s. He has had an extensive work-up for this including a 30-day event monitor and a hospitalization. He just seems to have a resting bradycardia. I advised the patient that if he finds that the Valium did more for him than his meclizine he may want to have a conversation with his doctor about this. I also informed him that unfortunately Valium is a controlled substance and has the potential for abuse. As he has had drug issues as recently as 2 weeks ago this is of significant concern. His father is here and will be with him tonight. Return if worsening or concerns ED Disposition - Plan for ED Patient: Disposition: Home or Assisted Living Diagnosis: Vertigo, Vasovagal syncope Instructions: ED VAGAL SYNCOPE, ED Vertigo Unspecified Prescriptions: Ondansetron [Zofran Odt] 4 mg PO Q8H PRN PRN #10 tab PRN Reason: Nausea Prescription Printed Referrals: Kervin Santana MD [Primary Care Provider] - 3-5 Days
[2020-05-10 18:49] LABS: Absolute Lymphocyte Count 3.34 X10^3/uL (0.83-4.51); Absolute Neutrophil Count 6.4 X10^3/uL (2.0-7.7); Basophil# 0.06 X10^3/uL; Basophil% 0.6 % (0-1); Eosinophil# 0.11 X10^3/uL; Hematocrit 44.7 % (40-54); Hemoglobin 15.1 g/dL (13.0-16.5); Lymphocyte # 3.34 X10^3/ul (4.0); Lymphocyte % 30.9 % (19-41); Mean Corp Hgb Conc 33.8 g/dL (32-36); Mean Corpuscular Hgb 30.8 pg (27.0-32.0); Mean Platelet Vol. 10.3 fl (6.2-12.0); Monocyte# 0.85 X10^3/uL; Monocyte% 7.9 % (0-10); NRBC Flagged by Analyzer 0 % (0-5); Neutrophil # 6.43 X10^3/uL (2.7-7.7); Neutrophil % 59.4 % (47-70); Platelet Count 235 K/mm3 (150-450); RBC Distribution Width CV 11.9 % (11.6-14.6); RBC Distribution Width SD 40.1 fl (35.1-43.9); Red Blood Count 4.91 M/mm3 (4.6-6.2); White Blood Count 10.8 K/mm3 (4.4-11.0)
[2020-05-10] MEDS: 0.9% Normal Saline 1,000 ML 1000 ML IV (19:00)
[2020-05-10] MEDS: Ondansetron 4 MG/2 ML Vial IV (19:00)
[2020-05-10 19:04] LABS: ALB/GLOB Ratio 1.1 RATIO (0.9-2.4); AST(SGOT) 18 U/L (15-37); Alanine Aminotransfer ALT/SGPT 26 U/L (16-61); Albumin, Serum 3.7 g/dL (3.2-5.0); Alkaline Phosphatase 70 U/L (45-117); Anion Gap 7 (5-15); BUN 8 mg/dL (7-18); BUN/Creat Ratio 8.7 RATIO (10-20); Calcium,Total 8.7 mg/dL (8.5-10.1); Chloride 110 mmol/L (98-107); Creatinine, Serum 0.92 mg/dL (0.70-1.30); EST Glomerular Filtration Rate 96 mL/min (>60); Est Glom Filt Rate - Afr Amer 116 mL/min (>60); Estimated Creatinine Clearance 77.85 ml/min; Globulin 3.3 g/dL (2.2-4.2); Glucose 111 mg/dL (74-106); Potassium 3.1 mmol/L (3.5-5.1); Sodium Level 143 mmol/L (136-145)
[2020-05-10 20:32] VITALS: BP 137/84; PULSE 42; RESP 12; O2SAT 99
[2020-05-10 20:33] LABS: Amphetamine Urine VISTA NEGATIVE (<1000 ng/mL); Barbiturate Urine VISTA NEGATIVE (< 200 ng/mL); Benzodiazepine Urine VISTA NEGATIVE (< 200 ng/mL); Cocaine Urine VISTA NEGATIVE (< 300 ng/mL); Ecstacy Urine VISTA NEGATIVE (< 500 ng/mL); Methadone Urine VISTA NEGATIVE (< 300 ng/mL); PCP Urine VISTA NEGATIVE (< 25 ng/mL); THC Urine VISTA NEGATIVE (< 50 ng/mL); Vista UDS pH Range 7
[2020-05-10 21:13] VITALS: BP 119/81; PULSE 50; RESP 14; O2SAT 98
[2020-05-10] MEDS: diazePAM 5 MG Tablet PO (21:16)
== END 2020-05-10 21:21 | disposition home or self-care (01) ==
PROVIDERS: Emergency Provider Emergency Medicine; PCP Family Medicine
DX: R55 Syncope and collapse (principal); F17.200 Nicotine dependence, unspecified, uncomplicated; Z79.899 Other long term (current) drug therapy
CPT/HCPCS: 80053; 80307; 80320; 85025; 93005; 96361; 96374; 99285; J7030; A4216; G0480; J2405

== ENCOUNTER 2020-06-02 17:16 | Emergency (ER) | payer SELFPAY ==
[2020-06-02 17:17] VITALS: BP 140/96; PULSE 69; RESP 18; TEMP 36.2; O2SAT 100; BMI 17.1
--- NOTE | 2020-06-02 17:36 | ED.DCSUM_ITS ---
History of Present Illness Chief Complaint: Edema Informant: Patient Onset: Days - Several Context: Gradual Onset Timing: Continuous Quality: Swelling Location: Fingers and ankles/legs bilaterally Current Severity: Mild Maximum Severity: Mild Worsened by: Unknown Relieved by: Nothing Associated Symptoms: Itching both legs Narrative: Patient has noticed imprints from his socks in his ankles. When at work, he states he wears socks that pulled up tall to his knees, and they typically cause him to itch, which happens frequently, causing him to scratch and cause excoriations that are visible on his legs. He states those have been there. Jakob erickson is new. He denies any recent medication changes, no shortness of breath, lightheadedness or near syncope, denies any painful rashes or joints. - Past Medical History (1) Vertigo Status: Chronic (2) Hearing impairment Status: Chronic (3) Iron deficiency anemia Status: Chronic Past Medical History - Allergies and Home Meds Allergies/Adverse Reactions: Allergies amoxicillin [Amoxicillin] Adverse Reaction (Verified 06/02/20 17:18) Nausea citalopram hydrobromide [From Celexa] Adverse Reaction (Verified 06/02/20 17:18) Nausea Primary Care Physician: Kervin Santana MD [Primary Care Provider] - Surgical History: - - R hand surgery s/p trauma, R inguinal hernia repair, Umbilical hernia repair. Smoking Status: Current every day smoker Alcohol: Occasional - Family History Maternal Family History: Reports: No pertinent history Paternal Family History: Reports: Cancer - Throat CA, currently being treated. Review of Systems General: Denies: Chills, Fever, Sweats Eyes: Denies: Visual changes - bilaterally, Diplopia ENT: Denies: Rhinorrhea, Sore throat Cardiovascular: Denies: Chest pain, Palpitations Respiratory: Denies: Dyspnea, Cough, Dyspnea on exertion Gastrointestinal: Denies: Abdominal pain, Nausea, Vomiting, Diarrhea, Melena, Hematochezia Genitourinary: Denies: Dysuria, Hematuria, Frequency Musculoskeletal: Reports: Swelling. Denies: Back pain, Extremity Pain Skin: Reports: Wounds - With pruritus, both lower legs, see HPI. Denies: Rash Neurological: Denies: Headache, Weakness, Numbness Physical Exam Vital Signs/Narrative: Vital Signs Temp Pulse Resp BP Pulse Ox 06/02/20 17:17 97.2 F L 69 18 140/96 H 100 Inital Vital Signs reviewed: Yes General: Well nourished, Well developed, Cachectic, No Acute Distress Head: Normocephalic, Atraumatic Eyes: Perrl, EOMI ENT: Moist mucous membranes, No rhinorrhea Neck: Supple, Nontender Cardiovascular: Regular rate, Regular rhythm, No murmurs Respiratory: No distress, CTA bilaterally, Chest nontender, - - No stridor Abdomen: Soft, Nontender, Nondistended Extremities: Nontender, Edema - Mild, symmetric bilateral ankles to mid rodríg[place]. No obvious edema to the fingers or hands or upper extremities or face.. Negative for: Calf Tenderness Skin: Normal color, Rash - Nontender erythematous excoriations with scabbing in linear distributions, both lower legs anteriorly. Neurological: Alert, Oriented x3, Cranial nerves II-XII grossly intact, Normal Strength, Normal Sensation, Normal Gait Psychological: Normal affect, Normal Mood Diagnostic/Tx/Re-eval Laboratory Tests 06/02/20 06/02/20 06/02/20 Range/Units 17:45 17:40 17:40 WBC 7.6 (4.4-11.0) K/mm3 RBC 4.77 (4.6-6.2) M/mm3 Hgb 15.0 (13.0-16.5) g/dL Hct 46.0 (40-54) % MCV 96.4 H (80-94) fL MCH 31.4 (27.0-32.0) pg MCHC 32.6 (32-36) g/dL RDW Std Deviation 47.8 H (35.1-43.9) fl RDW Coeff of Merry 13.3 (11.6-14.6) % Plt Count 189 (150-450) K/mm3 MPV 10.4 (6.2-12.0) fl Immature Gran % (Auto) 0.100 (0.0-0.9) % Neut % (Auto) 57.0 (47-70) % Lymph % (Auto) 25.5 (19-41) % [place] % (Auto) 12.6 H (0-10) % Eos % (Auto) 4.1 (0-5) % Baso % (Auto) 0.7 (0-1) % Absolute Neuts (auto) 4.3 (2.0-7.7) X10^3/uL Absolute Lymphs (auto) 1.94 (0.83-4.51) X10^3/uL Nucleated RBC % 0 (0-5) % Sodium 140 (136-145) mmol/L Potassium 3.5 (3.5-5.1) mmol/L Chloride 104 (98-107) mmol/L Carbon Dioxide 33.0 H (21.0-32.0) mmol/L Anion Gap 3 L (5-15) BUN 12 (7-18) mg/dL Creatinine 1.03 (0.70-1.30) mg/dL Estim Creat Clear Calc 69.53 ml/min Est GFR (MDRD) Af Amer 102 (>60) mL/min Est GFR (MDRD) Non-Af 84 (>60) mL/min BUN/Creatinine Ratio 11.7 (10-20) RATIO Glucose 92 (74-106) mg/dL Calcium 8.9 (8.5-10.1) mg/dL Total Bilirubin 0.90 (0.20-1.00) mg/dL AST 37 (15-37) U/L ALT 27 (16-61) U/L Alkaline Phosphatase 73 (45-117) U/L Total Protein 7.5 (6.4-8.2) g/dL Albumin 3.9 (3.2-5.0) g/dL Globulin 3.6 (2.2-4.2) g/dL Albumin/Globulin Ratio 1.1 (0.9-2.4) RATIO Urine Color Yellow (Yellow) Urine Clarity Clear (Clear) Urine pH 6.0 (5.0 - 8.0) Ur Specific [place] 1.020 (1.002-1.030) Urine Protein 30 H (Negative) mg/dl Urine Glucose (UA) Normal (Normal) mg/dl Urine Ketones 5 H (Negative) mg/dl Urine Occult Blood 150 H (Negative) /ul Urine Nitrite Negative (Negative) Urine Bilirubin Negative (Negative) mg/dL Urine Urobilinogen 1 H (Normal) mg/dl Ur Leukocyte Esterase 25 H (Negative) /ul Urine RBC 0 SEEN (0-5) /hpf Urine WBC 0-5 SEEN (0-5) /hpf Ur Squamous Epith Cells 0 SEEN (0-5) /hpf Calcium Oxalate Crystal 2+ (<or=2+) /hpf Urine Bacteria 1+ (None Seen) /hpf Urine Mucus 1+ (<or=2+) /hpf - Medical Decision Making Patient does have some proteinuria, however his kidney function is normal and he does not have hypoalbuminemia. Patient was reassured that there is nothing emergent going on. Perhaps this is related to a contact allergic reaction, I will place him on a short burst of prednisone that would be unlikely to make him swell as a side effect, if he has continued problems advised to follow-up with his doctor. He is comfortable with that plan. ED Disposition - Plan for ED Patient: Disposition: Home or Assisted Living Diagnosis: Edema of both lower legs Instructions: ED Peripheral Edema, Bilateral Prescriptions: Prednisone [Deltasone] 40 mg PO DAILY #10 tab Transmission Status: Pending to [facility][id number] Referrals: Kervin Santana MD [Primary Care Provider] - 1 Week if not improving
[2020-06-02 17:56] LABS: Squamous Epithelial Cells - UA 0 SEEN /hpf (0-5)
[2020-06-02 17:58] LABS: Color, Urine Yellow (Yellow); Glucose, Dipstick Normal (Normal); Ketone-Dipstick 5 mg/dl (Negative); Leukocyte Esterase-Dipstick 25 /ul (Negative); Nitrite-Dipstick Negative (Negative); Occult Blood-Urine 150 /ul (Negative); Protein-Dipstick 30 mg/dl (Negative); Urine Bilirubin Dipstick Negative (Negative); Urine Clarity Clear (Clear); Urine Urobilinogen 1 mg/dl (Normal)
[2020-06-02 17:58] LABS: Absolute Lymphocyte Count 1.94 X10^3/uL (0.83-4.51); Absolute Neutrophil Count 4.3 X10^3/uL (2.0-7.7); Basophil# 0.05 X10^3/uL; Basophil% 0.7 % (0-1); Eosinophil# 0.31 X10^3/uL; Eosinophils% 4.1 % (0-5); Lymphocyte # 1.94 X10^3/ul (4.0); Lymphocyte % 25.5 % (19-41); Mean Corp Hgb Conc 32.6 g/dL (32-36); Mean Corpuscular Hgb 31.4 pg (27.0-32.0); Mean Corpuscular Volume 96.4 fL (80-94); Mean Platelet Vol. 10.4 fl (6.2-12.0); Monocyte# 0.96 X10^3/uL; Monocyte% 12.6 % (0-10); NRBC Flagged by Analyzer 0 % (0-5); Neutrophil # 4.33 X10^3/uL (2.7-7.7); Platelet Count 189 K/mm3 (150-450); RBC Distribution Width CV 13.3 % (11.6-14.6); RBC Distribution Width SD 47.8 fl (35.1-43.9); Red Blood Count 4.77 M/mm3 (4.6-6.2); White Blood Count 7.6 K/mm3 (4.4-11.0)
[2020-06-02 18:12] LABS: White Blood Cells 0-5 SEEN /hpf (0-5)
[2020-06-02 18:13] LABS: Bacteria 1+ /hpf (None Seen); Calcium Oxalate Crystals Ur 2+ /hpf (<or=2+); Mucous, Urine 1+ /hpf (<or=2+)
[2020-06-02 18:15] LABS: Red Blood Cells-Urine 0 SEEN /hpf (0-5)
[2020-06-02 18:20] LABS: ALB/GLOB Ratio 1.1 RATIO (0.9-2.4); AST(SGOT) 37 U/L (15-37); Alanine Aminotransfer ALT/SGPT 27 U/L (16-61); Albumin, Serum 3.9 g/dL (3.2-5.0); Alkaline Phosphatase 73 U/L (45-117); Anion Gap 3 (5-15); BUN 12 mg/dL (7-18); BUN/Creat Ratio 11.7 RATIO (10-20); Calcium,Total 8.9 mg/dL (8.5-10.1); Chloride 104 mmol/L (98-107); Creatinine, Serum 1.03 mg/dL (0.70-1.30); EST Glomerular Filtration Rate 84 mL/min (>60); Est Glom Filt Rate - Afr Amer 102 mL/min (>60); Estimated Creatinine Clearance 69.53 ml/min; Globulin 3.6 g/dL (2.2-4.2); Glucose 92 mg/dL (74-106); Potassium 3.5 mmol/L (3.5-5.1); Protein, Total 7.5 g/dL (6.4-8.2); Sodium Level 140 mmol/L (136-145)
== END 2020-06-02 18:42 | disposition home or self-care (01) ==
PROVIDERS: Emergency Provider Emergency Medicine; PCP Family Medicine
DX: R60.0 Localized edema (principal); R42 Dizziness and giddiness; H91.90 Unspecified hearing loss, unspecified ear; F17.200 Nicotine dependence, unspecified, uncomplicated; Z79.899 Other long term (current) drug therapy
CPT/HCPCS: 80053; 81001; 85025; 99283; A4216

== ENCOUNTER 2021-04-21 09:04 | Emergency (ER) | payer BC, SELFPAY ==
[2021-04-21 09:09] VITALS: BP 138/94; PULSE 74; RESP 14; TEMP 36.4; O2SAT 99; BMI 17.8
--- NOTE | 2021-04-21 09:13 | EKG12_ITS ---
Test Reason : CP Blood Pressure : / mmHG Vent. Rate : 068 BPM Atrial Rate : 068 BPM P-R Int : 144 ms QRS Dur : 092 ms QT Int : 430 ms P-R-T Axes : 069 079 071 degrees QTc Int : 457 ms Normal sinus rhythm Incomplete right bundle branch block Confirmed by TESSA GUIDO, CAROLE ([id number]), film editor supervisor ISHA HASTINGS ([id number]) on 04/24/2021 10:04:11 AM Referred By: KALANI Confirmed By:CAROLE ZARATE MD
--- NOTE | 2021-04-21 09:14 | EDS_ITS ---
HPI History of Present Illness Chief Complaint: Palpitations Informant: patient Onset/Context/Timing Onset: Today Current Severity: Mild Maximum Severity: Moderate Narrative Narrative: Patient presents secondary to palpitations. He states about an hour prior to arrival he felt his heart started racing and he became short of breath. He felt like he was might pass out. Patient states he did have coffee this morning followed by a 5-hour energy drink. He has never had problems drinking these things in the past. Patient states that this time his heart rate feels i mproved but not completely back to normal. [facility] Medical History Hearing impairment Vertigo Home Medications NK 04/21/21 [History Last Taken Unknown] Allergy/AdvReac Type Severity Reaction Status Date / Time amoxicillin [Amoxicillin] AdvReac Nausea Verified 04/21/21 09:13 citalopram hydrobromide AdvReac Nausea Verified 04/21/21 09:13 [From Celexa] Social History Smoking Status: Current every day smoker tobacco type: cigarettes ROS ROS ED Constitutional Constitutional ED: Denies chills or fever(s) Eyes Eyes: Denies change in vision ENT ENT ED: Denies sore throat Cardiovascular Cardiovascular: Reports palpitations and racing heartbeat; Denies chest pain Respiratory/Chest Respiratory/Chest: Reports dyspnea; Denies cough Gastrointestinal Gastrointestinal: Denies abdominal pain, diarrhea, nausea or vomiting Genitourinary Genitourinary ED: Denies dysuria Musculoskeletal Musculoskeletal: Denies back pain Integumentary Denies rash Neurologic Neurologic: Denies headache(s) or weakness Psychiatric Psychiatric: Denies anxiety or depression Endocrine Endocrinology: Denies polydipsia or polyuria Allergic/Immunologic Allergic/Immunologic ED: Denies urticaria EXAM Physical Exam Const Vital Signs: 04/21/21 09:09 04/21/21 09:11 Temperature 97.6 F L Temperature Source Temporal Pulse Rate 74 Respiratory Rate 14 Respiratory Effort Normal Non-Labored Respiratory Pattern Normal Blood Pressure 138/94 H Blood Pressure Mean 108 Pulse Ox 99 Oxygen Delivery Method Room Air Positive well nourished and well developed General Appearance ED: well developed HEENT Reports normocephalic and head/scalp atraumatic Eyes PERRL and EOMs intact bilaterally Neck supple Chest Wall inspection of chest normal and palpation of chest normal Resp normal respiratory effort and clear to auscultation bilaterally Cardio regular rate and regular rhythm GI normal to inspection, nondistended, normoactive bowel sounds Palpation: soft Extremity normal to inspection Neuro oriented x3 and no sensory deficits noted Sensorium / Orientation: alert Motor Exam: strength 5/5 throughout Psych mental status grossly normal Skin no rashes or lesions noted MDM MDM MDM Narrative Medical decision making narrative: EKG, lab work, chest x-ray obtained. Lab Data Attestation: I reviewed the patient's lab results. Labs: Laboratory Results - last 24 hr 04/21/21 04/21/21 04/21/21 09:05 09:05 09:30 WBC 7.8 RBC 4.91 Hgb 15.1 Hct 45.6 MCV 92.9 MCH 30.8 MCHC 33.1 RDW Std Deviation 43.8 RDW Coeff of Merry 12.7 Plt Count 225 MPV 10.3 Immature Gran % (Auto) 0.100 Neut % (Auto) 56.7 Lymph % (Auto) 29.8 Nolan % (Auto) 10.2 H Eos % (Auto) 2.7 Baso % (Auto) 0.5 Absolute Neuts (auto) 4.4 Absolute Lymphs (auto) 2.33 Nucleated RBC % 0 D-Dimer Quant (PE/DVT) <= 0.27 Sodium 137 Potassium 3.2 L Chloride 103 Carbon Dioxide 30.0 Anion Gap 4 L BUN 9 Creatinine 0.93 Estim Creat Clear Calc 79.24 Est GFR (MDRD) Af Amer 113 Est GFR (MDRD) Non-Af 94 BUN/Creatinine Ratio 9.6 L Glucose 112 H Calcium 8.7 Magnesium 1.9 Troponin I High Sens 4.0 Radiography Chest X-Ray - ED: 1 View, Read by ED Physician and Chronic Changes Diagnostic Testing: Radiology Impression Chest X-Ray 04/21/21 09:35 IMPRESSION: Hyperinflation. 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 Potassium is noted to be is low at 3.2. He is given 40 mEq of potassium chloride here we given a prescription for 3 additional days at home. He is advised to return for recurrent symptoms. Discharge Plan Triage Chief Complaint: Palpitations ED Provider: Radha Arguelles Dx/Rx/DC Orders Clinical Impression: Palpitations, Hypokalemia Instructions: ED Hypokalemia, ED Palpitations Prescriptions: No Action NK RF: 0 Stand Alone Forms: ED Work / School Excuse Primary Care Provider: Kervin Santana Referrals: Kervin Santana MD [Primary Care Provider] - 1-2 Weeks Disposition Disposition: Home, Self Care
[2021-04-21 09:19] LABS: Absolute Lymphocyte Count 2.33 X10^3/uL (0.83-4.51); Absolute Neutrophil Count 4.4 X10^3/uL (2.0-7.7); Basophil# 0.04 X10^3/uL; Basophil% 0.5 % (0-1); Eosinophil# 0.21 X10^3/uL; Eosinophils% 2.7 % (0-5); Hematocrit 45.6 % (40-54); Hemoglobin 15.1 g/dL (13.0-16.5); Lymphocyte # 2.33 X10^3/ul (0.83-4.51); Lymphocyte % 29.8 % (19-41); Mean Corp Hgb Conc 33.1 g/dL (32-36); Mean Corpuscular Hgb 30.8 pg (27.0-32.0); Mean Corpuscular Volume 92.9 fL (80-94); Mean Platelet Vol. 10.3 fl (6.2-12.0); Monocyte% 10.2 % (0-10); NRBC Flagged by Analyzer 0 % (0-5); Neutrophil # 4.43 X10^3/uL (2.7-7.7); Neutrophil % 56.7 % (47-70); Platelet Count 225 K/mm3 (150-450); RBC Distribution Width CV 12.7 % (11.6-14.6); RBC Distribution Width SD 43.8 fl (35.1-43.9); Red Blood Count 4.91 M/mm3 (4.6-6.2); White Blood Count 7.8 K/mm3 (4.4-11.0)
[2021-04-21] MEDS: 0.9% Normal Saline 1,000 ML 150 ML IV (09:30)
[2021-04-21 09:32] LABS: Anion Gap 4 (5-15); BUN 9 mg/dL (7-18); BUN/Creat Ratio 9.6 RATIO (10-20); Calcium,Total 8.7 mg/dL (8.5-10.1); Chloride 103 mmol/L (98-107); Creatinine, Serum 0.93 mg/dL (0.70-1.30); EST Glomerular Filtration Rate 94 mL/min (>60); Est Glom Filt Rate - Afr Amer 113 mL/min (>60); Estimated Creatinine Clearance 79.24 ml/min; Glucose 112 mg/dL (74-106); Magnesium 1.9 mg/dL (1.6-2.6); Potassium 3.2 mmol/L (3.5-5.1); Sodium Level 137 mmol/L (136-145)
--- NOTE | 2021-04-21 09:35 | RAD_ITS ---
STUDY: X-RAY CHEST REASON FOR EXAM: Male, 45 years old. Sob TECHNIQUE: Single AP portable view of the chest. COMPARISON: Comparison is made with prior examination dated 12/08/2017. FINDINGS: EKG electrodes are seen. Hyperinflation. The lungs are clear. There is no demonstrated pleural abnormality. Normal size heart. Normal mediastinum and connor. Normal visualized pulmonary arteries. Normal visualized aortic arch and descending thoracic aorta. Normal visualized thoracic spine. Normal visualized ribs, clavicles, and shoulders. There is no demonstrated abnormality of the visualized soft tissue structures of the upper abdomen. RAD/Chest 1 View (Portable) IMPRESSION: Hyperinflation. Electronically Signed: Ritesh Muñoz MD at 9:46 EDT , Service support ,
[2021-04-21 09:51] LABS: D-Dimer Quantitative (DVT/PE) <= 0.27 FEU/ug/m (0.27-0.49)
[2021-04-21] MEDS: Potassium Chloride Oral Tablet 20 MEQ 40 MEQ PO (11:03)
[2021-04-21 11:04] VITALS: BP 128/94; PULSE 67; RESP 14; O2SAT 97
--- NOTE | 2021-04-21 11:08 | ED.RN ---
THIS NURSE REVIEWED D/C INSTRUCTIONS WITH PT. PT VERBALIZED UNDERSTANDING OF INSTRUCTIONS. IV D/C. IV CATHETER INTACT. PT TOLERATED WELL. PT DENIES FURTHER NEEDS OR QUESTIONS AT THIS TIME. PT AMBULATES FROM ROOM ON OWN WITHOUT ASSISTANCE FROM STAFF
== END 2021-04-21 11:10 | disposition home or self-care (01) ==
PROVIDERS: Emergency Provider Emergency Medicine; PCP Family Medicine
DX: R00.2 Palpitations (principal); E87.6 Hypokalemia; R06.02 Shortness of breath; F17.210 Nicotine dependence, cigarettes, uncomplicated
CPT/HCPCS: 71045; 80048; 83735; 84484; 85025; 85379; 93005; 96360; 96361; 99285; A4216

== ENCOUNTER 2021-04-23 09:50 | Emergency (ER) | payer BC, SELFPAY ==
[2021-04-23 09:52] VITALS: BP 116/92; PULSE 71; RESP 18; TEMP 36.9; O2SAT 98; BMI 16.7
--- NOTE | 2021-04-23 10:04 | EKG12_ITS ---
Test Reason : SOB/CP Blood Pressure : / mmHG Vent. Rate : 065 BPM Atrial Rate : 065 BPM P-R Int : 158 ms QRS Dur : 090 ms QT Int : 418 ms P-R-T Axes : 070 082 078 degrees QTc Int : 434 ms Normal sinus rhythm Normal ECG Confirmed by GARFIELD GUIDO, NICKI ([id number]), brands editor ISHA HASTINGS ([id number]) on 04/28/2021 9:07:40 AM Referred By: GRIS Confirmed By:SHIRLEY MERRILL MD
--- NOTE | 2021-04-23 10:08 | EDS_ITS ---
HPI History of Present Illness Chief Complaint: Shortness of Breath Informant: patient Onset/Context/Timing Onset: Days Context: light activity Timing: Intermittent Quality: Positive for Dyspnea on exertion; Negative for Orthopnea, PND and Wheezing Current Severity: Gone Maximum Severity: Moderate Worsened by: Exertion; Not Worsened By Lying flat and Coughing Relieved by: Rest Associated Symptoms Negative for cough Chest Pain: Positive for Intermittent, Sharp (Tiny little sharp pain) and - (Sharp) Narrative Narrative: Patient is a 45-year-old male who admits to smoking half pack per day since age of 18 who presents with [place] exertion. He was seen 2 days ago and diagnosed with hypokalemia. He also admits to palpitations, iron deficiency anemia,. He was instructed to return if the shortness of breath got worse. He states is worse. He denies history of PE or DVT. He denies risk factors for either. He denies fever, chills night sweats. He denies exposure anyone's been ill. He denies rhinorrhea, congestion or postnasal drainage. No sore throat. He denies decreased hearing or drainage from his hears. He denies loss of taste or smell. He occasionally has a cough, which he attributes to smoking and has had for some time. He denies orthopnea or PND. He denies leg pain, swelling discoloration. He denies black or maroon-colored stool. He denies abdominal pain. PE Risk Factors: Negative for Cancer, OCP + Smoking + > 35, Prior DVT or PE, Recent immobilization, Recent surgery and Recent travel Prior similar symptoms: Yes Recent [facility] Medical History Hearing impairment Vertigo Home Medications NK 04/21/21 [History Last Taken Unknown] Allergy/AdvReac Type Severity Reaction Status Date / Time amoxicillin [Amoxicillin] AdvReac Nausea Verified 04/23/21 09:52 citalopram hydrobromide AdvReac Nausea Verified 04/23/21 09:52 [From Celexa] Social History (Updated 04/23/21 @ 10:[address] Brenton Stephen MD) household members: none Smoking Status: Current every day smoker tobacco type: cigarettes alcohol intake: current alcohol intake frequency: a few times a month substance use type: does not use and other details: He he has past history of marijuana use. He presently denies using marijua ROS ROS ED Constitutional Constitutional ED: Denies chills, fever(s), sweats or weight loss Eyes Eyes: Denies blurry vision or change in vision ENT ENT ED: Denies ear pain, rhinorrhea or sore throat Cardiovascular Cardiovascular: Reports chest pain; Denies orthopnea, palpitations, paroxysmal nocturnal dyspnea or racing heartbeat Respiratory/Chest Respiratory/Chest: Reports dyspnea and dyspnea on exertion; Denies cough, orthopnea or paroxysmal nocturnal dyspnea Gastrointestinal Gastrointestinal: Denies abdominal pain, diarrhea, melena, nausea or vomiting Genitourinary Genitourinary ED: Denies dysuria, hematuria or urinary frequency Musculoskeletal Musculoskeletal: Denies arthralgias, back pain, myalgias or neck pain Integumentary Denies Abrasions or rash Neurologic Neurologic: Denies headache(s) or weakness Psychiatric Psychiatric: Denies anxiety or depression Hematologic/Lymphatic Hematologic/Lymphatic: Denies easy bleeding or easy bruising EXAM Physical Exam Const Vital Signs: 04/23/21 09:52 04/23/21 10:43 Temperature 98.4 F Temperature Source Temporal Pulse Rate 71 Respiratory Rate 18 Respiratory Effort Normal Non-Labored Respiratory Pattern Normal Blood Pressure 116/92 H Blood Pressure Mean 100 Pulse Ox 98 Oxygen Delivery Method Room Air Positive well nourished and well developed General Appearance ED: well developed HEENT Reports TM's clear and moist mucous membranes HEENT Narrative: Head is symmetric. Ears normal. Nares patent. Posterior pharynx unremarkable. Patient is hard of hearing. He only has his right hearing aid in. atraumatic Tympanic Membrane ED: Yes TM's clear Eyes PERRL and EOMs intact bilaterally General Eye ED: Negative for pale conjunctiva or scleral icterus Neck no lymphadenopathy, supple and no meningeal signs Resp normal respiratory effort and clear to auscultation bilaterally Cardio regular rate, regular rhythm, S1 normal heart sound, S2 normal heart sound and no murmurs GI non-tender, non-distended and no masses Auscultation: normoactive bowel sounds Palpation: soft Back/Spine no CVA tenderness and normal to inspection Extremity normal to inspection Extremity Narrative: There is no asymmetry, swelling, discoloration, leg vein distention, palpable cords or tenderness along the distribution of the deep venous system. General Extremety ED: Negative for edema or tenderness General Extremity: Negative for edema Neuro oriented x3, CN's II-XII intact bilaterally and no sensory deficits noted Sensorium / Orientation: alert Motor Exam: strength 5/5 throughout Psych mental status grossly normal Thought Process: normal thought process Skin Lesions: no lesions Rashes: no rashes MDM MDM MDM Narrative Medical decision making narrative: Patient presents with dyspnea on exertion. Patient is PERC negative. Will obtain troponin to determine if this may be cardiac etiology. Will review records from 2 days ago. Will obtain CBC to assess for anemia. Especially since he has a history of GI bleed. Will assess his electrolytes and renal function as well. Chest x-ray was obtained as well as EKG. Lab Data Attestation: I reviewed the patient's lab results. Lab results narrative: With a troponin less than 3 repeat is not needed. This rules out cardiac etiology. This is most likely related to his COPD. Patient be discharged to home. Labs: Laboratory Results - last 24 hr 04/23/21 04/23/21 04/23/21 10:40 10:40 10:40 WBC 7.9 RBC 4.86 Hgb 14.9 Hct 44.8 MCV 92.2 MCH 30.7 MCHC 33.3 RDW Std Deviation 42.5 RDW Coeff of Merry 12.5 Plt Count 230 MPV 10.3 Immature Gran % (Auto) 0.300 Neut % (Auto) 64.5 Lymph % (Auto) 25.2 [place] % (Auto) 7.5 Eos % (Auto) 1.9 Baso % (Auto) 0.6 Absolute Neuts (auto) 5.1 Absolute Lymphs (auto) 1.98 Nucleated RBC % 0 Sodium 140 Potassium 3.6 Chloride 106 Carbon Dioxide 30.0 Anion Gap 4 L BUN 6 L Creatinine 0.86 Estim Creat Clear Calc 83.18 Est GFR (MDRD) Af Amer 124 Est GFR (MDRD) Non-Af 103 BUN/Creatinine Ratio 7.0 L Glucose 90 Calcium 8.8 Troponin I High Sens < 3.0 L Radiography Chest X-Ray - ED: 2 View, Read by ED Physician, Heart, Mediastinum, Bony Structures, No Acute Disease, Chronic Changes and - (2 view chest x-ray interpreted by sd at 1118. There is no evidence of pneumothorax or effusion. There is no infiltrate. There is findings consistent with COPD.) EKG Initial EKG: Attestation: I personally reviewed and interpreted this EKG as follows: Interpretation: Sinus Rhythm Comments: Normal sinus rhythm with a ventricular rate of 65. AK intervals 158 ms. QRS duration 90 ms. QT duration 418 ms. [place] is normal. The EKG is normal. Discharge Plan Triage Chief Complaint: Shortness of Breath Other Complaint: Chest Pain ED Provider: Brenton Stephen Dx/Rx/DC Orders Clinical Impression: Dyspnea on minimal exertion Instructions: ED Dyspnea Prescriptions: No Action NK RF: 0 Primary Care Provider: Kervin Santana Referrals: Kervin Santana MD [Primary Care Provider] - 3-5 Days Disposition Disposition: Home, Self Care
--- NOTE | 2021-04-23 10:48 | RAD_ITS ---
STUDY: X-RAY CHEST REASON FOR EXAM: Male, 45 years old. Dyspnea on exertion TECHNIQUE: PA and lateral views of the chest. COMPARISON: Comparison is made with prior study dated 04/21/2021. FINDINGS: EKG electrodes are seen. There is hyperinflation of the lungs consistent with chronic obstructive lung disease (COPD). There is no demonstrated pleural abnormality. Normal size heart. Normal mediastinum and connor. There is prominence of the pulmonary hilar arteries without peripheral pulmonary vascular congestion, suggesting pulmonary hypertension. Normal visualized aortic arch and descending thoracic aorta. Normal visualized thoracic spine. Normal visualized ribs, clavicles, and shoulders. There is no demonstrated abnormality of the visualized soft tissue structures of the upper abdomen. RAD/Chest PA and Lateral IMPRESSION: Hyperinflation. The lungs are clear. Prominence of the central pulmonary arteries. Electronically Signed: Ritesh Muñoz MD at 11:19 EDT , Service support ,
[2021-04-23 11:01] LABS: Anion Gap 4 (5-15); BUN 6 mg/dL (7-18); Calcium,Total 8.8 mg/dL (8.5-10.1); Chloride 106 mmol/L (98-107); Creatinine, Serum 0.86 mg/dL (0.70-1.30); EST Glomerular Filtration Rate 103 mL/min (>60); Est Glom Filt Rate - Afr Amer 124 mL/min (>60); Estimated Creatinine Clearance 83.18 ml/min; Glucose 90 mg/dL (74-106); Potassium 3.6 mmol/L (3.5-5.1); Sodium Level 140 mmol/L (136-145)
[2021-04-23 11:08] LABS: Troponin-I HS < 3.0 pg/mL (3.0-78.5)
[2021-04-23 11:13] LABS: Absolute Lymphocyte Count 1.98 X10^3/uL (0.83-4.51); Absolute Neutrophil Count 5.1 X10^3/uL (2.0-7.7); Basophil# 0.05 X10^3/uL; Basophil% 0.6 % (0-1); Eosinophil# 0.15 X10^3/uL; Eosinophils% 1.9 % (0-5); Hematocrit 44.8 % (40-54); Hemoglobin 14.9 g/dL (13.0-16.5); Lymphocyte # 1.98 X10^3/ul (0.83-4.51); Lymphocyte % 25.2 % (19-41); Mean Corp Hgb Conc 33.3 g/dL (32-36); Mean Corpuscular Hgb 30.7 pg (27.0-32.0); Mean Corpuscular Volume 92.2 fL (80-94); Mean Platelet Vol. 10.3 fl (6.2-12.0); Monocyte# 0.59 X10^3/uL; Monocyte% 7.5 % (0-10); NRBC Flagged by Analyzer 0 % (0-5); Neutrophil # 5.06 X10^3/uL (2.7-7.7); Neutrophil % 64.5 % (47-70); Platelet Count 230 K/mm3 (150-450); RBC Distribution Width CV 12.5 % (11.6-14.6); RBC Distribution Width SD 42.5 fl (35.1-43.9); Red Blood Count 4.86 M/mm3 (4.6-6.2); White Blood Count 7.9 K/mm3 (4.4-11.0)
[2021-04-23 11:30] VITALS: BP 129/96; PULSE 77; RESP 16; O2SAT 99
== END 2021-04-23 11:31 | disposition home or self-care (01) ==
LOC: ED 11:23
PROVIDERS: Emergency Provider Emergency Medicine; PCP Family Medicine
DX: R06.09 Other forms of dyspnea (principal); R07.9 Chest pain, unspecified; F17.210 Nicotine dependence, cigarettes, uncomplicated
CPT/HCPCS: 71046; 80048; 84484; 85025; 93005; 99285; A4216

== ENCOUNTER 2021-06-17 15:27 | Emergency (ER) | payer BC, SELFPAY ==
[2021-06-17 15:28] VITALS: BP 121/80; PULSE 78; RESP 20; TEMP 36.6; O2SAT 100; BMI 16.9
[2021-06-17 15:58] VITALS: BP 111/98; PULSE 59; RESP 16; TEMP 36.6; O2SAT 98
--- NOTE | 2021-06-17 16:07 | RAD_ITS ---
STUDY: X-RAY CHEST REASON FOR EXAM: Male, 45 years old. chest pain TECHNIQUE: PA and lateral views of the chest. COMPARISON: 04/23/2021. FINDINGS: The lungs are clear and expanded. There is no demonstrated pleural abnormality. Normal size heart. Normal mediastinum and connor. Normal visualized pulmonary arteries. Normal visualized aortic arch and descending thoracic aorta. Normal visualized thoracic spine. Normal visualized ribs, clavicles, and shoulders. There is no demonstrated abnormality of the visualized soft tissue structures of the upper abdomen. RAD/Chest PA and Lateral IMPRESSION: Normal x-ray examination of the chest. Electronically Signed: Dot Short MD at 16:52 EDT Tel , Service support ,
--- NOTE | 2021-06-17 16:07 | EKG12_ITS ---
Test Reason : REPEAT Blood Pressure : / mmHG Vent. Rate : 050 BPM Atrial Rate : 050 BPM P-R Int : 158 ms QRS Dur : 092 ms QT Int : 446 ms P-R-T Axes : 068 080 065 degrees QTc Int : 406 ms Sinus bradycardia with sinus arrhythmia Otherwise normal ECG Confirmed by TESSA GUIDO, CAROLE ([id number]), book editor ISHA HASTINGS ([id number]) on 06/20/2021 9:54:08 AM Referred By: MR Confirmed By:CAROLE ZARATE MD
[2021-06-17 16:19] LABS: Absolute Lymphocyte Count 1.87 X10^3/uL (0.83-4.51); Absolute Neutrophil Count 3.5 X10^3/uL (2.0-7.7); Basophil# 0.06 X10^3/uL; Basophil% 0.9 % (0-1); Eosinophil# 0.51 X10^3/uL; Eosinophils% 7.3 % (0-5); Hematocrit 45.5 % (40-54); Lymphocyte # 1.87 X10^3/ul (0.83-4.51); Lymphocyte % 26.9 % (19-41); Mean Corpuscular Hgb 30.2 pg (27.0-32.0); Mean Corpuscular Volume 91.5 fL (80-94); Mean Platelet Vol. 9.9 fl (6.2-12.0); Monocyte# 0.99 X10^3/uL; Monocyte% 14.2 % (0-10); NRBC Flagged by Analyzer 0 % (0-5); Neutrophil # 3.52 X10^3/uL (2.7-7.7); Neutrophil % 50.6 % (47-70); Platelet Count 232 K/mm3 (150-450); RBC Distribution Width CV 12.8 % (11.6-14.6); RBC Distribution Width SD 42.7 fl (35.1-43.9); Red Blood Count 4.97 M/mm3 (4.6-6.2)
[2021-06-17] MEDS: Aspirin 81 MG TAB.CHEW 324 MG PO (16:19)
--- NOTE | 2021-06-17 16:22 | ED.VIS.CHEST ---
HPI History of Present Illness Chief Complaint: Chest Pain Narrative Narrative: Patient presenting for evaluation secondary to chest pain. Patient states that over the course of the last 5 days he has been dealing with chest pain. Its right sided, he states that it is exertional. States that he when he walks short distances, the pain will come on and it has been associated with lightheadedness as well as shortness of breath. He does report the pain will radiate to his right shoulder as well as the right side of his neck. Patient denies any recent infectious signs or symptoms such as fever cough nausea vomiting or diarrhea. Patient states that he is a smoker, denies any history of hypertension hyperlipidemia or diabetes. He denies any premature family history of heart disease. Patient denies any DVT or PE risk factors. Review of systems otherwise negative. [facility] Medical History Hearing impairment Vertigo Home Medications NK 04/21/21 [History Last Taken Unknown] Allergy/AdvReac Type Severity Reaction Status Date / Time amoxicillin [Amoxicillin] AdvReac Nausea Verified 06/17/21 15:27 citalopram hydrobromide AdvReac Nausea Verified 06/17/21 15:27 [From Celexa] Surgical History History of hand surgery History of hernia repair History of hernia repair Social History household members: none Smoking Status: Current every day smoker tobacco type: cigarettes alcohol intake: current alcohol intake frequency: a few times a month substance use type: does not use and other details: He he has past history of marijuana use. He presently denies using marijua ROS ROS ED Constitutional Constitutional ED: Denies fever(s) Eyes Eyes: Denies change in vision ENT ENT ED: Denies rhinorrhea or sore throat Cardiovascular Cardiovascular: Reports as per HPI and chest pain Respiratory/Chest Respiratory/Chest: Denies cough, dyspnea or dyspnea on exertion Gastrointestinal Gastrointestinal: Denies abdominal pain, nausea or vomiting Genitourinary Genitourinary ED: Denies dysuria Musculoskeletal Musculoskeletal: Denies myalgias or neck pain Integumentary Denies rash Neurologic Neurologic: Denies headache(s), paresthesias or weakness Psychiatric Psychiatric: Denies depression Endocrine Endocrinology: Denies polydipsia or polyuria Hematologic/Lymphatic Hematologic/Lymphatic: Denies easy bleeding or easy bruising Allergic/Immunologic Allergic/Immunologic ED: Denies urticaria EXAM Physical Exam Const Vital Signs: 06/17/21 15:28 06/17/21 15:58 06/17/21 16:05 Temperature 97.8 F 97.8 F Temperature Source Temporal Oral Pulse Rate 78 59 L Respiratory Rate 20 H 16 Respiratory Effort Normal Blood Pressure 121/80 H 111/98 H Blood Pressure Mean 93 102 Pulse Ox 100 98 Oxygen Delivery Method Room Air Room Air Oxygen Flow Rate (L/min) 0 06/17/21 16:27 06/17/21 17:29 06/17/21 18:12 Temperature 97.4 F L 98.2 F Temperature Source Oral Oral Pulse Rate 64 62 Respiratory Rate 14 16 Respiratory Effort Blood Pressure 119/82 H 121/98 H Blood Pressure Mean 94 105 Pulse Ox 93 100 Oxygen Delivery Method Room Air Room Air Room Air Oxygen Flow Rate (L/min) 100 Positive well nourished and well developed General Appearance ED: well developed and NAD HEENT Reports moist mucous membranes normocephalic and atraumatic Eyes EOMs intact bilaterally Neck no lymphadenopathy, supple and no JVD Chest Wall inspection of chest normal and palpation of chest normal Chest Narrative: No evidence of vesicular rash Resp normal respiratory effort and clear to auscultation bilaterally Auscultation: Negative for rales, rhonchi or wheezes Cardio regular rate, regular rhythm, S1 normal heart sound, S2 normal heart sound and no murmurs Peripheral Pulses: radial pulses present and posterior tibial pulses present GI normal to inspection, nondistended, normoactive bowel sounds, soft to palpation and non-tender GI Narrative: No evidence of palpable abdominal mass or pulsatile mass 2+ radial 2+ PT pulses bilaterally symmetric Extremity normal to inspection Extremity Narrative: Calves are supple no palpable cord General Extremety ED: Negative for edema or tenderness General Extremity: Negative for edema Neuro oriented x3 and no sensory deficits noted Sensorium / Orientation: awake and alert Psych mental status grossly normal Skin no rashes or lesions noted MDM MDM MDM Narrative Medical decision making narrative: Patient presented for evaluation secondary to chest pain. EKG was obtained was found to be unremarkable. Subsequent EKG was also obtained was found to be unremarkable. CBC chemistry and 2 high-sensitivity troponins were found to be negative chest x-ray by my personal review was found to be negative as well. Patient continued to complain of pain that went down into his groin for me, and stated that he has a new onset of impotence over the course of the last week. I was concerned for the possibility of dissection I ordered CT angiogram of the chest abdomen and pelvis this was found to be negative. Patient at this point is low risk per the heart score, has a negative cardiac work-up and negative work-up for vascular insult. I believe he can safely be discharged with outpatient follow-up. Will be given a referral to cardiology for his exertional chest pain as well as referral to urology for his impotence. Patient was discharged in stable condition. Lab Data Labs: Laboratory Results - last 24 hr 06/17/21 06/17/21 06/17/21 16:03 16:03 18:10 WBC 7.0 RBC 4.97 Hgb 15.0 Hct 45.5 MCV 91.5 MCH 30.2 MCHC 33.0 RDW Std Deviation 42.7 RDW Coeff of Merry 12.8 Plt Count 232 MPV 9.9 Immature Gran % (Auto) 0.100 Neut % (Auto) 50.6 Lymph % (Auto) 26.9 [place] % (Auto) 14.2 H Eos % (Auto) 7.3 H Baso % (Auto) 0.9 Absolute Neuts (auto) 3.5 Absolute Lymphs (auto) 1.87 Nucleated RBC % 0 Sodium 140 Potassium 3.4 L Chloride 107 Carbon Dioxide 30.0 Anion Gap 3 L BUN 8 Creatinine 0.98 Estim Creat Clear Calc 73.58 Est GFR (MDRD) Af Amer 107 Est GFR (MDRD) Non-Af 88 BUN/Creatinine Ratio 8.1 L Glucose 59 L Calcium 9.3 Troponin I High Sens 4 5 Radiography Diagnostic Testing: Radiology Impression Chest X-Ray 06/17/21 16:07 IMPRESSION: Normal x-ray examination of the chest. Electronically Signed: Dot Short MD at 16:52 EDT Tel , Service support , Chest/Abdomen/Pelvis CTA 06/17/21 19:06 IMPRESSION: 1. No acute findings in the chest, abdomen or pelvis. No aneurysm or dissection. 2. Stable left adrenal nodule. 3. Stable left renal cyst. Electronically Signed: Dot Short MD at 20:42 EDT Tel , Service support , EKG Initial EKG: Attestation: I personally reviewed and interpreted this EKG as follows: (Normal sinus rhythm of 80 with some artifact noted in lead V1. Isoelectric ST segments normal T waves normal DC and QTc intervals no evidence of acute ischemia or arrhythmia) Discharge Plan Triage Chief Complaint: Chest Pain ED Provider: Logan Cid Dx/Rx/DC Orders Clinical Impression: Chest pain, Impotence Instructions: ED Chest Pain, Noncardiac Prescriptions: No Action NK RF: 0 Primary Care Provider: Kervin Santana Referrals: Ry Danielle MD [STAFF PHYSICIAN] - Ismael Delgado MD [STAFF PHYSICIAN] - Kervin Santana MD [Primary Care Provider] - Disposition Disposition: Home, Self Care
[2021-06-17 16:27] VITALS: O2SAT 93
[2021-06-17 16:44] LABS: Anion Gap 3 (5-15); BUN 8 mg/dL (7-18); BUN/Creat Ratio 8.1 RATIO (10-20); Calcium,Total 9.3 mg/dL (8.5-10.1); Chloride 107 mmol/L (98-107); Creatinine, Serum 0.98 mg/dL (0.70-1.30); EST Glomerular Filtration Rate 88 mL/min (>60); Est Glom Filt Rate - Afr Amer 107 mL/min (>60); Estimated Creatinine Clearance 73.58 ml/min; Glucose 59 mg/dL (74-106); Potassium 3.4 mmol/L (3.5-5.1); Sodium Level 140 mmol/L (136-145); Troponin-I HS 4 pg/mL (3.0-78.0)
[2021-06-17 17:29] VITALS: BP 119/82; PULSE 64; RESP 14; TEMP 36.3
[2021-06-17 18:12] VITALS: BP 121/98; PULSE 62; RESP 16; TEMP 36.8; O2SAT 100
--- NOTE | 2021-06-17 18:40 | EKG12_ITS ---
Test Reason : CP Blood Pressure : / mmHG Vent. Rate : 080 BPM Atrial Rate : 080 BPM P-R Int : 154 ms QRS Dur : 088 ms QT Int : 392 ms P-R-T Axes : 074 082 063 degrees QTc Int : 452 ms Normal sinus rhythm with sinus arrhythmia Normal ECG Confirmed by ALLEGRA GUIDO, CAS ([id number]), rewrite editor ISHA HASTINGS ([id number]) on 06/25/2021 1:07:07 PM Referred By: WESLEY Confirmed By:CAS DINH MD
[2021-06-17 18:45] LABS: Troponin-I HS 5 pg/mL (3.0-78.0)
--- NOTE | 2021-06-17 19:06 | CT_ITS ---
EXAM: CT ANGIOGRAPHY CHEST, ABDOMEN AND PELVIS WITH INTRAVENOUS CONTRAST CLINICAL INDICATION: Chest and abdominal pain TECHNIQUE: Helically acquired angiography images were obtained of the chest, abdomen and pelvis with intravenous contrast. This CT exam was performed using one or more of the following dose reduction techniques: automated exposure control, adjustment of the mA and/or kV according to patient size, and/or use of iterative reconstruction technique. This report was created using [employer] report generation technology. MIP reconstructed images were created and reviewed. CONTRAST: IV 100mL Isovue-370 COMPARISON: CT abdomen 04/06/2020. FINDINGS: VASCULATURE: AORTA: No acute findings. Normal in caliber. No dissection. PULMONARY ARTERIES: Unremarkable. Normal in caliber. No obvious central pulmonary embolism although this study was not performed with the pulmonary embolism protocol. GREAT VESSELS OF AORTIC ARCH: Unremarkable. Normal in caliber. No dissection. CELIAC TRUNK AND MESENTERIC ARTERIES: No acute findings. No occlusion or significant stenosis. No dissection. RENAL ARTERIES: No acute findings. No occlusion or significant stenosis. No dissection. ILIAC ARTERIES: No acute findings. No occlusion or significant stenosis. No dissection. CHEST: LUNGS AND PLEURAL SPACES: Unremarkable. No mass. No consolidation or edema. No pleural effusion or thickening. No pneumothorax. HEART: Unremarkable. Heart size is normal. No pericardial effusion. MEDIASTINUM: Unremarkable. No mediastinal or hilar adenopathy. Esophagus is unremarkable. No hiatal hernia. THYROID: Unremarkable. No thyroid lesions. ABDOMEN: LIVER: Unremarkable. Homogeneous. No focal mass. GALLBLADDER AND BILE DUCTS: Unremarkable. No calcified gallstones. No gallbladder distention or wall edema. No intra- or extrahepatic biliary ductal dilation. PANCREAS: Unremarkable. No focal cystic or solid mass. SPLEEN: Unremarkable. Normal size without focal cystic or solid mass. ADRENALS: 2.4 cm left adrenal nodule. No significant change in size compared to the prior study. CT density measures 17 Hounsfield units. This is nonspecific. Normal right adrenal gland. KIDNEYS AND URETERS: 1.5 cm upper pole left renal cyst with partial wall calcification. The kidneys are otherwise unremarkable. Normal renal size and position. No hydronephrosis. STOMACH AND BOWEL: Unremarkable. No stomach or bowel distention. No focal inflammatory change. PELVIS: APPENDIX: No evidence of acute appendicitis. BLADDER: Unremarkable. REPRODUCTIVE: Unremarkable as visualized. No mass. CHEST, ABDOMEN and PELVIS: INTRAPERITONEAL SPACE: Unremarkable. No ascites or other fluid collection. No free air. BONES/JOINTS: Unremarkable. No suspicious lytic or blastic abnormality. SOFT TISSUES: Unremarkable. No discrete abdominal or pelvic wall hernia. LYMPH NODES: Unremarkable. No enlarged lymph nodes. CT/CTA Chst, Abd, Pel W and/or WO IMPRESSION: 1. No acute findings in the chest, abdomen or pelvis. No aneurysm or dissection. 2. Stable left adrenal nodule. 3. Stable left renal cyst. Electronically Signed: Dot Short MD at 20:42 EDT Tel , Service support ,
[2021-06-17 21:48] VITALS: BP 115/89
== END 2021-06-17 21:49 | disposition home or self-care (01) ==
PROVIDERS: Emergency Provider Emergency Medicine; PCP Family Medicine
DX: R07.9 Chest pain, unspecified (principal); N52.9 Male erectile dysfunction, unspecified; R42 Dizziness and giddiness; R06.02 Shortness of breath; M54.2 Cervicalgia; M25.511 Pain in right shoulder; F17.210 Nicotine dependence, cigarettes, uncomplicated
CPT/HCPCS: 36415; 71046; 71275; 74174; 80048; 84484; 85025; 93005; 99285; Q9967; A4216

== ENCOUNTER 2021-09-01 14:39 | Emergency (ER) | payer BC, SELFPAY ==
[2021-09-01 14:40] VITALS: BP 153/103; PULSE 82; RESP 16; TEMP 35.8; O2SAT 93; BMI 17.7
[2021-09-01 16:05] LABS: Absolute Lymphocyte Count 4.03 X10^3/uL (0.83-4.51); Absolute Neutrophil Count 9.6 X10^3/uL (2.0-7.7); Basophil# 0.05 X10^3/uL; Basophil% 0.3 % (0-1); Eosinophil# 0.08 X10^3/uL; Eosinophils% 0.5 % (0-5); Hematocrit 44.3 % (40-54); Hemoglobin 14.5 g/dL (13.0-16.5); Lymphocyte # 4.03 X10^3/ul (0.83-4.51); Lymphocyte % 26.7 % (19-41); Mean Corp Hgb Conc 32.7 g/dL (32-36); Mean Corpuscular Volume 91.7 fL (80-94); Mean Platelet Vol. 10.4 fl (6.2-12.0); Monocyte# 1.27 X10^3/uL; Monocyte% 8.4 % (0-10); NRBC Flagged by Analyzer 0 % (0-5); Neutrophil # 9.59 X10^3/uL (2.7-7.7); Neutrophil % 63.8 % (47-70); Platelet Count 243 K/mm3 (150-450); RBC Distribution Width CV 12.8 % (11.6-14.6); RBC Distribution Width SD 43.2 fl (35.1-43.9); Red Blood Count 4.83 M/mm3 (4.6-6.2); White Blood Count 15.1 K/mm3 (4.4-11.0)
--- NOTE | 2021-09-01 16:11 | CT_ITS ---
STUDY: CT ABDOMEN AND PELVIS WITH CONTRAST REASON FOR EXAM: Male, 45 years old. Diffuse abdominal pain RADIATION DOSAGE (If Supplied By Facility): CTDIvol = ( 11.89 ) mGy, DLP = ( 379.77 ) mGycm TECHNIQUE: Transaxial images were obtained from the dome of the diaphragm to the symphysis pubis with oral contrast. IV 100mL Isovue-300 was administered. Sagittal and coronal images were reconstructed. Individualized dose optimization techniques were used for this CT. COMPARISON: 2018 FINDINGS: The visualized lung bases are unremarkable. The visualized portions of the heart are within normal limits. Normal liver. Normal gallbladder and extrahepatic biliary system. Normal spleen. Normal pancreas. Normal bilateral adrenal glands. No obstructive uropathy, stable punctate nonobstructing right renal stone, stable partially calcified left renal cyst Normal visualized stomach. Normal small intestine. Normal colon. The appendix is visualized and appears normal. Appendix seen on coronal recon images 40 through 45 Normal abdominal aorta. Normal inferior vena cava. Normal retroperitoneum. Normal urinary bladder. Normal abdominal wall. Normal osseous structures. CT/Abdomen/Pelvis WITH Contrast IMPRESSION: No suspicious solid organ abnormality, stable punctate nonobstructing right renal stone, stable partially calcified left renal cyst, no specific follow-up needed No free intraperitoneal fluid, air, or suspicious adenopathy Normal appendix visualized Electronically Signed: Berlin Miranda MD at 18:28 EST , Service support ,
--- NOTE | 2021-09-01 16:12 | EDS_ITS ---
HPI History of Present Illness Chief Complaint: Abd Pain Informant: patient Narrative Narrative: 45-year-old male presenting to the emergency room with abdominal pain. Patient states that last night he began to vomit and has kept him up all night. States that last night his abdomen was swollen and he had some lumps on it. He took pictures to show me but unfortunately they are shadowy. He denies any fevers. He notes 2 days of no bowel movement. He also notes that he would like to inquire about a Covid vaccination because he is going to be going to the [facility] for a while and would like to have at least 1 shot. He tells me that about 4 years ago he was told he had lumps on the inside of his abdomen but he cannot tell me anything more about that. PFSH PFS Medical History Hearing impairment HTN (hypertension) Vertigo Home Medications ondansetron 4 mg PO Q6H PRN PRN #10 tab 09/01/21 [Rx Last Taken Unknown] Allergy/AdvReac Type Severity Reaction Status Date / Time amoxicillin [Amoxicillin] AdvReac Nausea Verified 09/01/21 14:42 citalopram hydrobromide AdvReac Nausea Verified 09/01/21 14:42 [From Celexa] Surgical History History of hand surgery History of hernia repair History of hernia repair Social History household members: none Smoking Status: Current every day smoker tobacco type: cigarettes alcohol intake: current alcohol intake frequency: a few times a month substance use type: does not use and other details: He he has past history of marijuana use. He presently denies using marijua ROS ROS ED Constitutional Constitutional ED: Denies chills, fever(s) or weight loss Eyes Eyes: Denies change in vision or diplopia ENT ENT ED: Denies ear pain, rhinorrhea or sore throat Cardiovascular Cardiovascular: Denies chest pain, orthopnea, palpitations or racing heartbeat Respiratory/Chest Respiratory/Chest: Denies cough, dyspnea or orthopnea Gastrointestinal Gastrointestinal: Reports abdominal pain, constipation, nausea and vomiting; Denies diarrhea Genitourinary Genitourinary ED: Denies dysuria, hematuria or urinary frequency Musculoskeletal Musculoskeletal: Denies arthralgias or myalgias Integumentary Denies abscess or rash Neurologic Neurologic: Denies headache(s) or weakness Psychiatric Psychiatric: Denies anxiety, depression, suicidal ideation or suicidal thoughts Endocrine Endocrinology: Denies polydipsia, polyphagia or polyuria Allergic/Immunologic Allergic/Immunologic ED: Denies mouth swelling, tongue swelling or urticaria EXAM Physical Exam Const Vital Signs: 09/01/21 14:40 09/01/21 18:06 Temperature 96.4 F L Temperature Source Temporal Pulse Rate 82 84 Respiratory Rate 16 16 Blood Pressure 153/103 H 128/74 H Blood Pressure Mean 119 92 Pulse Ox 93 99 Oxygen Delivery Method Room Air Positive well nourished and well developed General Appearance ED: well developed HEENT Reports normocephalic, head/scalp atraumatic, TM's clear and moist mucous membranes Negative for trauma Tympanic Membrane ED: Yes TM's clear Eyes PERRL and EOMs intact bilaterally Neck no lymphadenopathy, supple and no JVD Resp normal respiratory effort and clear to auscultation bilaterally Cardio regular rate, regular rhythm and no murmurs GI Palpation: soft and tender LLQ, LUQ and suprapubic Back/Spine no CVA tenderness and normal ROM Extremity normal to inspection General Extremety ED: Negative for edema General Extremity: Negative for edema Neuro oriented x3 and CN's II-XII intact bilaterally Sensorium / Orientation: alert Motor Exam: strength 5/5 throughout Psych mental status grossly normal Mood & Affect: Negative for depressed or tearful Skin no rashes or lesions noted and no wounds MDM MDM MDM Narrative Medical decision making narrative: Patient's white count is elevated at 15.1. CMP negative except for potassium of 3.0 which is most likely due to his vomiting. Lipase negative. CT the pelvis does not demonstrate any acute pathology that would require surgery or admission. I will write for the patient to have [place]. He is interested in receiving a Covid vaccination today. He will receive his first dose of Pfizer and he will need to follow-up for his second dose Lab Data Attestation: I reviewed the patient's lab results. Labs: Laboratory Results - last 24 hr 09/01/21 09/01/21 09/01/21 15:50 15:50 15:50 WBC 15.1 H RBC 4.83 Hgb 14.5 Hct 44.3 MCV 91.7 MCH 30.0 MCHC 32.7 RDW Std Deviation 43.2 RDW Coeff of Merry 12.8 Plt Count 243 MPV 10.4 Immature Gran % (Auto) 0.300 Neut % (Auto) 63.8 Lymph % (Auto) 26.7 [place] % (Auto) 8.4 Eos % (Auto) 0.5 Baso % (Auto) 0.3 Absolute Neuts (auto) 9.6 H Absolute Lymphs (auto) 4.03 Nucleated RBC % 0 Sodium 136 Potassium 3.0 L Chloride 99 Carbon Dioxide 31.0 Anion Gap 6 BUN 8 Creatinine 1.08 Estim Creat Clear Calc 67.90 Est GFR (MDRD) Af Amer 96 Est GFR (MDRD) Non-Af 79 BUN/Creatinine Ratio 7.4 L Glucose 86 Calcium 9.0 Total Bilirubin 0.90 Direct Bilirubin 0.22 AST 29 ALT 24 Alkaline Phosphatase 74 Total Protein 8.0 Albumin 4.0 Globulin 4.0 Lipase Urine Color Urine Clarity Urine pH Ur Specific [place] Urine Protein Urine Glucose (UA) Urine Ketones Urine Occult Blood Urine Nitrite Urine Bilirubin Urine Urobilinogen Ur Leukocyte Esterase Urine RBC Urine WBC Ur Squamous Epith Cells Urine Bacteria Urine Mucus 09/01/21 09/01/21 15:50 16:25 WBC RBC Hgb Hct MCV MCH MCHC RDW Std Deviation RDW Coeff of Merry Plt Count MPV Immature Gran % (Auto) Neut % (Auto) Lymph % (Auto) [place] % (Auto) Eos % (Auto) Baso % (Auto) Absolute Neuts (auto) Absolute Lymphs (auto) Nucleated RBC % Sodium Potassium Chloride Carbon Dioxide Anion Gap BUN Creatinine Estim Creat Clear Calc Est GFR (MDRD) Af Amer Est GFR (MDRD) Non-Af BUN/Creatinine Ratio Glucose Calcium Total Bilirubin Direct Bilirubin AST ALT Alkaline Phosphatase Total Protein Albumin Globulin Lipase 41 L Urine Color Straw Urine Clarity Clear Urine pH 6.5 Ur Specific [place] 1.010 Urine Protein Negative Urine Glucose (UA) Normal Urine Ketones Negative Urine Occult Blood Negative Urine Nitrite Negative Urine Bilirubin Negative Urine Urobilinogen Normal Ur Leukocyte Esterase Negative Urine RBC 0 SEEN Urine WBC 0 SEEN Ur Squamous Epith Cells 0 SEEN Urine Bacteria 0 SEEN Urine Mucus 0 SEEN Radiography Diagnostic Testing: Clinical Impression(s) from Imaging Studies Abdomen/Pelvis CT 09/01/21 16:11 IMPRESSION: No suspicious solid organ abnormality, stable punctate nonobstructing right renal stone, stable partially calcified left renal cyst, no specific follow-up needed No free intraperitoneal fluid, air, or suspicious adenopathy Normal appendix visualized Electronically Signed: [place] Miranda MD at 18:28 EST , Service support , Discharge Plan Triage Chief Complaint: Abd Pain ED Provider: Brenden Contreras Dx/Rx/DC Orders Clinical Impression: Abdominal pain, Vomiting Instructions: ED Vomiting (Adult) Prescriptions: New ondansetron [ondansetron] 4 MG tablet 4 mg PO Q6H PRN PRN (Reason: Nausea) Qty: 10 RF: 0 Primary Care Provider: Kervin Santana Referrals: Kervin Santana MD [Primary Care Provider] - 3-5 Days if not improving Disposition Disposition: Home, Self Care
[2021-09-01 16:20] LABS: Anion Gap 6 (5-15); BUN 8 mg/dL (7-18); BUN/Creat Ratio 7.4 RATIO (10-20); Chloride 99 mmol/L (98-107); Creatinine, Serum 1.08 mg/dL (0.70-1.30); EST Glomerular Filtration Rate 79 mL/min (>60); Est Glom Filt Rate - Afr Amer 96 mL/min (>60); Glucose 86 mg/dL (74-106); Sodium Level 136 mmol/L (136-145)
[2021-09-01 16:26] LABS: Lipase 41 U/L (73-393)
[2021-09-01 16:32] LABS: Bacteria 0 SEEN /hpf (None Seen); Mucous, Urine 0 SEEN /hpf (<or=2+); Red Blood Cells-Urine 0 SEEN /hpf (0-5); Squamous Epithelial Cells - UA 0 SEEN /hpf (0-5); White Blood Cells 0 SEEN /hpf (0-5)
[2021-09-01 16:36] LABS: AST(SGOT) 29 U/L (15-37); Alanine Aminotransfer ALT/SGPT 24 U/L (16-61); Alkaline Phosphatase 74 U/L (45-117); Bilirubin, Direct 0.22 mg/dL (0.00-0.30)
[2021-09-01 16:38] LABS: Color, Urine Straw (Yellow); Glucose, Dipstick Normal (Normal); Ketone-Dipstick Negative (Negative); Leukocyte Esterase-Dipstick Negative /ul (Negative); Nitrite-Dipstick Negative (Negative); Occult Blood-Urine Negative /ul (Negative); Protein-Dipstick Negative (Negative); Urine Bilirubin Dipstick Negative (Negative); Urine Clarity Clear (Clear); Urine Urobilinogen Normal (Normal); Urine pH 6.5 (5.0 - 8.0)
[2021-09-01 18:06] VITALS: BP 128/74; PULSE 84; RESP 16; O2SAT 99
[2021-09-01 20:10] VITALS: RESP 16
--- NOTE | 2021-09-01 20:15 | ED.RN ---
CALLED PHARMACY FOR J&J VACCINE
[2021-09-01] MEDS: COVID-19 VAC,AD26(JANSSEN)/PF 0.5 ML SYRINGE IM (21:18)
== END 2021-09-01 21:49 | disposition home or self-care (01) ==
PROVIDERS: Emergency Provider Emergency Medicine; PCP Family Medicine
DX: R10.9 Unspecified abdominal pain (principal); R11.2 Nausea with vomiting, unspecified; K59.00 Constipation, unspecified; Z23 Encounter for immunization; I10 Essential (primary) hypertension; F17.210 Nicotine dependence, cigarettes, uncomplicated
CPT/HCPCS: 74177; 80048; 80076; 81001; 83690; 85025; 91300; 91303; 99283; Q9967; A4216